=== PATIENT | female | born 1945 | race Caucasian/White ===

== ENCOUNTER 2018-01-04 05:05 | Inpatient (IN) | payer MEDICARE, MEDICAID ==
[2018-01-04] VITALS (16 sets, daily range): BP systolic 77–138; BP diastolic 48–72
[~2018-01-04] VITALS: Ht 165.1 cm; Wt 56.6 kg
[2018-01-04] MEDS ORDERED: normal saline 1000ml 1,000 ML IV ONE ×3 (05:20→13:20)
[2018-01-04] MEDS ORDERED: NORepinephrine 8mg/ 250ml NS 250 ML IV ONE (05:30)
[2018-01-04] MEDS ORDERED: normal saline 1000ml 1,000 ML IV STA (05:34)
[2018-01-04] MEDS ORDERED: LORazepam 2 mg/ml vial IV STA ×2 (05:40→05:46)
[2018-01-04 05:41] LABS: ABG BASE EXCESS -6.9 mmol/L (-2.0-3.0); ABG HCO3 22.1 mmol/L (22.0-26.0); ABG OXYGEN SATURATION 96.5 % (95-98); ABG PCO2 (T) 56.6 mmHg (32.0-45.0); ABG PH (T) 7.204 (7.350-7.450); FCOHb 7.3 % (0.5-1.5); FO2Hb 89.5 % (94-100); MINUTE VOLUME 8 L/min; PATIENT TEMPERATURE 36.1; PEEP 5 cm H2O; RESPIRATORY RATE 16 b/min; RESPIRATORY RATE (OBSERVED) 16 b/min; TOTAL HEMOGLOBIN 14.4 G/dl (12.0-16.0)
[2018-01-04] MEDS ORDERED: LORazepam 2 mg/ml vial ONE (05:42)
[2018-01-04 06:04] LABS: BASOPHILS # (AUTO) 0.1 X10'3 (0-0.2); BASOPHILS % (AUTO) 0.4 % (0-1); EOSINOPHILS # (AUTO) 0.5 X10'3 (0-0.9); EOSINOPHILS % (AUTO) 2.6 % (0-6); HEMATOCRIT 36.3 % (35.0-45.0); HEMOGLOBIN 11.7 g/dl (12.0-16.0); LYMPHOCYTES # (AUTO) 3.3 X10'3 (1.1-4.8); LYMPHOCYTES % (AUTO) 18.6 % (21-51); MEAN CORPUSCULAR HEMOGLOBIN 26.4 PG (27.0-31.0); MEAN CORPUSCULAR HGB CONC 32.1 % (33.0-36.5); MEAN CORPUSCULAR VOLUME 82.1 FL (78-98); MEAN PLATELET VOLUME 7.1 FL (7.4-10.4); MONOCYTES # (AUTO) 0.8 X10'3 (0-0.9); MONOCYTES % (AUTO) 4.7 % (2-12); NEUTROPHILS # (AUTO) 13.2 X10'3 (1.8-7.7); NEUTROPHILS % (AUTO) 73.7 % (42-75); PLATELET COUNT 286 X10'3 (140-440); RED BLOOD COUNT 4.42 X10'6 (4.20-5.60); RED CELL DISTRIBUTION WIDTH 17.7 % (11.5-14.5); WHITE BLOOD COUNT 17.9 X10'3 (4.5-11.0)
[2018-01-04] MEDS ORDERED: CISatracurium **Bolus** 2 mg/ml inj IV PRN (06:10)
[2018-01-04] MEDS: K, MAG and/or Phos replacement - Verify level? MC SCH ×2 (06:10→08:00)
[2018-01-04] MEDS ORDERED: morphine 2 MG/ML inj. syringe IV PRN (06:10)
[2018-01-04] MEDS ORDERED: morphine 4 MG/ML inj SYRINge IV PRN (06:10)
[2018-01-04] MEDS ORDERED: acetaminophen 325mg tablet PO PRN (06:10)
[2018-01-04 06:19] LABS: ALANINE AMINOTRANSFERASE 117 U/L (12-78); ALBUMIN 1.6 G/DL (3.4-5.0); ALBUMIN/GLOBULIN RATIO 0.6 (1.1-1.5); ALKALINE PHOSPHATASE 51 IU/L (46-116); ANION GAP 9 (8-16); ASPARTATE AMINO TRANSFERASE 158 U/L (10-37); BILIRUBIN,TOTAL 0.2 MG/DL (0.1-1.0); BLOOD UREA NITROGEN 6 MG/DL (7-18); BUN/CREATININE RATIO 7.4 (6.6-38.0); CHLORIDE 113 MMOL/L (99-107); CREATININE 0.81 MG/DL (0.40-0.90); GLUCOSE 166 MG/DL (70-104); MAGNESIUM 1.1 MG/DL (1.5-2.4); POTASSIUM 3.2 MMOL/L (3.5-5.1); SODIUM 146 MMOL/L (135-145); TOTAL CARBON DIOXIDE 24.5 MMOL/L (24-32); TOTAL PROTEIN 4.4 G/DL (6.4-8.2); eGFR 70 ML/MIN
[2018-01-04 06:21] LABS: CALCIUM 5.9 MG/DL (8.5-10.1); INR 1.3 INR; PARTIAL THROMBOPLASTIN TIME 50 SECONDS (22-32); PROTHROMBIN TIME 13.6 SECONDS (9.0-12.0)
[2018-01-04] MEDS ORDERED: magnesium 1gm/100ml D5W IVPB 100 ML IV SCH ×3 (06:25→07:00)
[2018-01-04] MEDS ORDERED: potassium 10mEq/100ml NS w/LIDOcaine (10mg/bag) IV ONE (06:25)
[2018-01-04] MEDS ORDERED: calcium gluconate inj. 1 GM in normal saline 100ml IV soln 90 ML IV ONE (06:30)
[2018-01-04] MEDS ORDERED: vancomycin/NS 1 GM ADD-VANTAGE 250 ML IV ONE (06:30)
[2018-01-04] MEDS ORDERED: NITR0.4T51 SL (06:32)
[2018-01-04] MEDS ORDERED: PROP425C PO (06:32)
[2018-01-04] MEDS ORDERED: HYDR25TA4 PO (06:32)
[2018-01-04] MEDS ORDERED: ASPI-3 PO (06:32)
[2018-01-04] MEDS ORDERED: AMLO10TA4 PO (06:32)
[2018-01-04] MEDS ORDERED: SIMV80TA2 PO (06:32)
[2018-01-04] MEDS ORDERED: POTA8TAB3 PO (06:32)
[2018-01-04] MEDS ORDERED: DABI150C PO (06:32)
[2018-01-04] MEDS ORDERED: BENA40TA73 PO (06:32)
[2018-01-04] MEDS ORDERED: PARO20TA6 PO (06:32)
[2018-01-04] MEDS ORDERED: calcium chloride 100 MG/1 ML inj IV ONE (06:40)
[2018-01-04 07:02] LABS: PHOSPHORUS 4.1 MG/DL (2.3-4.5)
[2018-01-04] MEDS ORDERED: calcium chloride inj. 1,000 MG in normal saline 100ml IV soln 90 ML IV ONE (07:20)
[2018-01-04] MEDS ORDERED: MIDAZolam 5mg/ml 2ml vial IV ONE (07:20)
[2018-01-04] MEDS ORDERED: NORepinephrine 8mg/ 250ml NS 250 ML IV SCH (07:35)
[2018-01-04 07:54] LABS: CLARITY,URINE CLEAR (Clear); COLOR,URINE YELLOW (Yellow); GLUCOSE, URINE 100 mg/dl (Neg); KETONES,URINE NEGATIVE (Neg); LEUKOCYTE ESTERASE ,URINE NEGATIVE (Neg); NITRITES, URINE NEGATIVE (Neg); OCCULT BLOOD,URINE MODERATE (Neg); PROTEIN,URINE >=300 mg/dl (Neg); UROBILINOGEN,URINE 0.2 E.U/dL (0.2-1.0)
[2018-01-04 07:55] LABS: UA COLLECTION TYPE FOLEY CATH
[2018-01-04] MEDS: FENTANYL-0.9 % NACL/PF 100 ML IV PRN (08:00)
[2018-01-04] MEDS: midazolam 100mg in NS 100ml 100 ML IV PRN ×2 (08:00→19:25)
[2018-01-04] MEDS ORDERED: etomidate 2mg/ml inj. ONE (08:00)
[2018-01-04] MEDS ORDERED: NORepinephrine 1 mg/ml inj IV ONE (08:00)
[2018-01-04] MEDS ORDERED: 0.9 % SODIUM CHLORIDE 10 ML VIAL ONE (08:00)
[2018-01-04 08:47] LABS: SQUAMOUS EPITHELIAL CELL,UR MODERATE /LPF (FEW)
[2018-01-04 08:48] LABS: BACTERIA,URINE FEW /HPF (Neg); MUCUS STRANDS FEW /LPF (Neg); RENAL CELLS, URINE FEW /HPF; WBC,URINE 0-4 /HPF (0-4)
[2018-01-04 08:49] LABS: RBC,URINE 20-50 /HPF (0-2)
[2018-01-04] MEDS: enoxaparin 40mg/0.4ml syringe SUBCUT SCH (09:20)
[2018-01-04] MEDS: pantoprazole 40 MG vial IV SCH (09:20)
[2018-01-04] MEDS: piperacillin/tazo 3.375gm/50ml 50 ML IV SCH ×3 (09:21→20:03)
[2018-01-04] MEDS ORDERED: dextrose 50%-water 50ml dispensing syringe IV PRN (09:25)
[2018-01-04] MEDS: insulin regular, human 100 UNIT in normal saline 100ml IV soln 99 ML IV SCH ×6 (09:25→22:08)
[2018-01-04] MEDS: normal saline 1000ml 1,000 ML IV SCH ×2 (09:41→20:04)
[2018-01-04 11:47] LABS: ALBUMIN 2.3 G/DL (3.4-5.0); ANION GAP 4 (8-16); BLOOD UREA NITROGEN 10 MG/DL (7-18); BUN/CREATININE RATIO 15.6 (6.6-38.0); CALCIUM 8.3 MG/DL (8.5-10.1); CHLORIDE 110 MMOL/L (99-107); CREATININE 0.64 MG/DL (0.40-0.90); GLUCOSE 136 MG/DL (70-104); MAGNESIUM 1.7 MG/DL (1.5-2.4); POTASSIUM 3.8 MMOL/L (3.5-5.1); SODIUM 143 MMOL/L (135-145); TOTAL CARBON DIOXIDE 29.3 MMOL/L (24-32); eGFR > 90 ML/MIN
[2018-01-04] MEDS: insulin Lispro (HumaLOG) vial - multi-dose SQ SCH ×3 (12:00→20:04)
[2018-01-04 15:21] LABS: OXYGEN SATURATION (MIXED VEN) 60.4 % (60-80); PO2 MIXED VENOUS (TEMP COR) 33.3 mmHg (35-46)
[2018-01-04 15:36] LABS: ABG BASE EXCESS -8.4 mmol/L (-2.0-3.0); ABG HCO3 21.6 mmol/L (22.0-26.0); ABG OXYGEN SATURATION 93.6 % (95-98); ABG PCO2 (T) 58.9 mmHg (32.0-45.0); ABG PO2 (T) 72.6 mmHg (83-108); ALLEN'S TEST Positive; FCOHb 1.2 % (0.5-1.5); FMetHb 0.1 % (0.3-1.12); FO2Hb 92.4 % (94-100); MINUTE VOLUME 7 L/min; PATIENT TEMPERATURE 34.9; PEEP 5 cm H2O; RESPIRATORY RATE 22 b/min; RESPIRATORY RATE (OBSERVED) 22 b/min; TIDAL VOLUME 397 mL; TOTAL HEMOGLOBIN 14.7 G/dl (12.0-16.0)
[2018-01-04 17:32] LABS: ALBUMIN 2.4 G/DL (3.4-5.0); ANION GAP 7 (8-16); BLOOD UREA NITROGEN 11 MG/DL (7-18); BUN/CREATININE RATIO 18.3 (6.6-38.0); CALCIUM 7.8 MG/DL (8.5-10.1); CHLORIDE 109 MMOL/L (99-107); GLUCOSE 137 MG/DL (70-104); MAGNESIUM 1.7 MG/DL (1.5-2.4); SODIUM 143 MMOL/L (135-145); TOTAL CARBON DIOXIDE 27.5 MMOL/L (24-32); eGFR > 90 ML/MIN
[2018-01-04] MEDS: VANCOMYCIN 750MG IV in NS 250 ML IV SCH (18:50)
[2018-01-04] MEDS: CISatracurium besylate inj. 200 MG in normal saline 250ml IV soln 180 ML IV PRN (19:24)
[2018-01-04 21:16] LABS: ABG BASE EXCESS -8.3 mmol/L (-2.0-3.0); ABG HCO3 19.5 mmol/L (22.0-26.0); ABG OXYGEN SATURATION 98.1 % (95-98); ABG PCO2 (T) 40.5 mmHg (32.0-45.0); ABG PH (T) 7.277 (7.350-7.450); ABG PO2 (T) 88.7 mmHg (83-108); ALLEN'S TEST Positive; FCOHb 0.8 % (0.5-1.5); FMetHb 0.1 % (0.3-1.12); FO2Hb 97.2 % (94-100); MINUTE VOLUME 9 L/min; PEEP 5 cm H2O; RESPIRATORY RATE 24 b/min; RESPIRATORY RATE (OBSERVED) 24 b/min; TOTAL HEMOGLOBIN 14.4 G/dl (12.0-16.0)
[2018-01-04 21:16] LABS: OXYGEN SATURATION (MIXED VEN) 76.9 % (60-80); PO2 MIXED VENOUS (TEMP COR) 32.7 mmHg (35-46)
[2018-01-04] MEDS: ipratropium/albuterol 3ml nebule NEB PRN ×2 (21:18→23:12)
[2018-01-04 23:38] LABS: ALBUMIN 2.1 G/DL (3.4-5.0); ANION GAP 12 (8-16); BLOOD UREA NITROGEN 11 MG/DL (7-18); BUN/CREATININE RATIO 19.3 (6.6-38.0); CALCIUM 7.8 MG/DL (8.5-10.1); CHLORIDE 109 MMOL/L (99-107); CREATININE 0.57 MG/DL (0.40-0.90); GLUCOSE 127 MG/DL (70-104); MAGNESIUM 1.5 MG/DL (1.5-2.4); SODIUM 144 MMOL/L (135-145); TOTAL CARBON DIOXIDE 23.3 MMOL/L (24-32); eGFR > 90 ML/MIN
[2018-01-04 23:53] LABS: POTASSIUM 2.7 MMOL/L (3.5-5.1); TROPONIN I 1.01 NG/ML (0.0-0.05)
[2018-01-05] VITALS (19 sets, daily range): BP systolic 93–143; BP diastolic 57–91
[2018-01-05] MEDS ORDERED: potassium Cl 40MEQ/250ML bag 250 ML IV PRN
[2018-01-05] MEDS: insulin regular, human 100 UNIT in normal saline 100ml IV soln 99 ML IV SCH ×4 (00:12→06:15)
[2018-01-05] MEDS: FENTANYL-0.9 % NACL/PF 100 ML IV PRN ×2 (00:45→21:57)
[2018-01-05] MEDS: potassium Cl 40MEQ/250ML bag 250 ML IV SCH ×2 (00:47→02:54)
[2018-01-05] MEDS: piperacillin/tazo 3.375gm/50ml 50 ML IV SCH ×4 (02:05→19:28)
[2018-01-05] MEDS: ipratropium/albuterol 3ml nebule NEB PRN ×3 (03:03→15:26)
[2018-01-05 03:25] LABS: ABG BASE EXCESS -8.2 mmol/L (-2.0-3.0); ABG HCO3 15.9 mmol/L (22.0-26.0); ABG OXYGEN SATURATION 92.4 % (95-98); ABG PCO2 (T) 24.1 mmHg (32.0-45.0); ABG PH (T) 7.416 (7.350-7.450); ABG PO2 (T) 45.7 mmHg (83-108); ALLEN'S TEST Positive; FMetHb 0.3 % (0.3-1.12); FO2Hb 91.2 % (94-100); MINUTE VOLUME 12 L/min; PATIENT TEMPERATURE 32.5; PEEP 5 cm H2O; RESPIRATORY RATE 24 b/min; RESPIRATORY RATE (OBSERVED) 24 b/min; TOTAL HEMOGLOBIN 14.3 G/dl (12.0-16.0)
[2018-01-05 03:31] LABS: OXYGEN SATURATION (MIXED VEN) 58.3 % (60-80)
[2018-01-05 05:15] LABS: BASOPHILS % (AUTO) 0 % (0-1); EOSINOPHILS # (AUTO) 0.2 X10'3 (0-0.9); EOSINOPHILS % (AUTO) 1.3 % (0-6); HEMOGLOBIN 14.5 g/dl (12.0-16.0); LYMPHOCYTES # (AUTO) 1.8 X10'3 (1.1-4.8); LYMPHOCYTES % (AUTO) 12.6 % (21-51); MEAN CORPUSCULAR HEMOGLOBIN 25.9 PG (27.0-31.0); MEAN CORPUSCULAR HGB CONC 31.5 % (33.0-36.5); MEAN CORPUSCULAR VOLUME 82.3 FL (78-98); MEAN PLATELET VOLUME 7.8 FL (7.4-10.4); NEUTROPHILS # (AUTO) 11.5 X10'3 (1.8-7.7); NEUTROPHILS % (AUTO) 79.1 % (42-75); PLATELET COUNT 306 X10'3 (140-440); RED BLOOD COUNT 5.59 X10'6 (4.20-5.60); RED CELL DISTRIBUTION WIDTH 17.3 % (11.5-14.5); WHITE BLOOD COUNT 14.5 X10'3 (4.5-11.0)
[2018-01-05] MEDS: NORepinephrine 8mg/ 250ml NS 250 ML IV SCH (05:15)
[2018-01-05 05:20] LABS: ALANINE AMINOTRANSFERASE 124 U/L (12-78); ALBUMIN 2.1 G/DL (3.4-5.0); ALBUMIN/GLOBULIN RATIO 0.6 (1.1-1.5); ALKALINE PHOSPHATASE 59 IU/L (46-116); ANION GAP 13 (8-16); ASPARTATE AMINO TRANSFERASE 115 U/L (10-37); BILIRUBIN,TOTAL 0.5 MG/DL (0.1-1.0); BLOOD UREA NITROGEN 13 MG/DL (7-18); BUN/CREATININE RATIO 25.5 (6.6-38.0); CALCIUM 7.5 MG/DL (8.5-10.1); CHLORIDE 111 MMOL/L (99-107); CREATININE 0.51 MG/DL (0.40-0.90); GLUCOSE 137 MG/DL (70-104); MAGNESIUM 1.5 MG/DL (1.5-2.4); PHOSPHORUS 2.2 MG/DL (2.3-4.5); POTASSIUM 5.1 MMOL/L (3.5-5.1); SODIUM 143 MMOL/L (135-145); TOTAL CARBON DIOXIDE 19.3 MMOL/L (24-32); TOTAL PROTEIN 5.8 G/DL (6.4-8.2); eGFR > 90 ML/MIN
[2018-01-05 05:46] LABS: INR 1.1 INR; PARTIAL THROMBOPLASTIN TIME 39 SECONDS (22-32); PROTHROMBIN TIME 11.4 SECONDS (9.0-12.0)
[2018-01-05] MEDS: insulin Lispro (HumaLOG) vial - multi-dose SQ SCH ×4 (07:00→19:28)
[2018-01-05] MEDS: K, MAG and/or Phos replacement - Verify level? MC SCH (08:00)
[2018-01-05] MEDS ORDERED: DOBUTamine-DoBUTrex 500mg/D5W 250 ML IV SCH (08:05)
[2018-01-05] MEDS: normal saline 1000ml 1,000 ML IV SCH ×2 (08:50→16:14)
[2018-01-05 09:16] LABS: OXYGEN SATURATION (MIXED VEN) 74.4 % (60-80); PO2 MIXED VENOUS (TEMP COR) 29.4 mmHg (35-46)
[2018-01-05] MEDS: enoxaparin 40mg/0.4ml syringe SUBCUT SCH (09:20)
[2018-01-05 09:21] LABS: ABG BASE EXCESS -8.3 mmol/L (-2.0-3.0); ABG HCO3 14.3 mmol/L (22.0-26.0); ABG OXYGEN SATURATION 99.5 % (95-98); ABG PCO2 (T) 19.9 mmHg (32.0-45.0); ABG PH (T) 7.457 (7.350-7.450); ABG PO2 (T) 374.9 mmHg (83-108); FCOHb 0.6 % (0.5-1.5); FO2Hb 98.9 % (94-100); MINUTE VOLUME 15 L/min; PATIENT TEMPERATURE 33.1; PEEP 8 cm H2O; RESPIRATORY RATE 24 b/min; TOTAL HEMOGLOBIN 14.8 G/dl (12.0-16.0)
[2018-01-05] MEDS: mineral oil/petrolatum ophthal oint EACHEYE SCH ×3 (09:21→19:28)
[2018-01-05] MEDS: pantoprazole 40 MG vial IV SCH (09:21)
[2018-01-05] MEDS: VANCOMYCIN 750MG IV in NS 250 ML IV SCH ×2 (09:21→19:25)
[2018-01-05 11:30] LABS: ALBUMIN 1.8 G/DL (3.4-5.0); ANION GAP 15 (8-16); BLOOD UREA NITROGEN 13 MG/DL (7-18); BUN/CREATININE RATIO 22.4 (6.6-38.0); CALCIUM 7.4 MG/DL (8.5-10.1); CHLORIDE 114 MMOL/L (99-107); CREATININE 0.58 MG/DL (0.40-0.90); GLUCOSE 151 MG/DL (70-104); MAGNESIUM 1.4 MG/DL (1.5-2.4); POTASSIUM 3.8 MMOL/L (3.5-5.1); SODIUM 144 MMOL/L (135-145); TROPONIN I 0.53 NG/ML (0.0-0.05); eGFR > 90 ML/MIN
[2018-01-05 11:36] LABS: TOTAL CARBON DIOXIDE 14.7 MMOL/L (24-32)
[2018-01-05 15:26] LABS: ABG BASE EXCESS -8.7 mmol/L (-2.0-3.0); ABG HCO3 14.7 mmol/L (22.0-26.0); ABG OXYGEN SATURATION 98.3 % (95-98); ABG PCO2 (T) 22.8 mmHg (32.0-45.0); ABG PH (T) 7.416 (7.350-7.450); ABG PO2 (T) 110.6 mmHg (83-108); FCOHb 0.4 % (0.5-1.5); FMetHb 0.1 % (0.3-1.12); FO2Hb 97.8 % (94-100); MINUTE VOLUME 14 L/min; PATIENT TEMPERATURE 34.2; PEEP 5 cm H2O; RESPIRATORY RATE 24 b/min; TOTAL HEMOGLOBIN 13.6 G/dl (12.0-16.0)
[2018-01-05 15:26] LABS: OXYGEN SATURATION (MIXED VEN) 64.4 % (60-80); PO2 MIXED VENOUS (TEMP COR) 27.8 mmHg (35-46)
[2018-01-05 17:41] LABS: ALBUMIN 1.7 G/DL (3.4-5.0); ANION GAP 14 (8-16); BLOOD UREA NITROGEN 14 MG/DL (7-18); BUN/CREATININE RATIO 26.9 (6.6-38.0); CALCIUM 7.3 MG/DL (8.5-10.1); CHLORIDE 115 MMOL/L (99-107); CREATININE 0.52 MG/DL (0.40-0.90); GLUCOSE 132 MG/DL (70-104); MAGNESIUM 1.4 MG/DL (1.5-2.4); POTASSIUM 3.5 MMOL/L (3.5-5.1); SODIUM 145 MMOL/L (135-145); TOTAL CARBON DIOXIDE 16.3 MMOL/L (24-32); eGFR > 90 ML/MIN
[2018-01-05] MEDS: CISatracurium besylate inj. 200 MG in normal saline 250ml IV soln 180 ML IV PRN (19:27)
[2018-01-05 21:06] LABS: ABG BASE EXCESS -10.6 mmol/L (-2.0-3.0); ABG OXYGEN SATURATION 97.1 % (95-98); ABG PCO2 (T) 23.4 mmHg (32.0-45.0); ABG PH (T) 7.362 (7.350-7.450); FCOHb 0.8 % (0.5-1.5); FO2Hb 96.3 % (94-100); MINUTE VOLUME 14 L/min; PATIENT TEMPERATURE 36.6; PEEP 5 cm H2O; RESPIRATORY RATE 24 b/min; RESPIRATORY RATE (OBSERVED) 24 b/min; TOTAL HEMOGLOBIN 13.2 G/dl (12.0-16.0)
[2018-01-05 21:31] LABS: OXYGEN SATURATION (MIXED VEN) 78.8 % (60-80)
[2018-01-05 23:58] LABS: ALBUMIN 1.7 G/DL (3.4-5.0); ANION GAP 14 (8-16); BLOOD UREA NITROGEN 16 MG/DL (7-18); BUN/CREATININE RATIO 21.9 (6.6-38.0); CHLORIDE 115 MMOL/L (99-107); CREATININE 0.73 MG/DL (0.40-0.90); GLUCOSE 125 MG/DL (70-104); MAGNESIUM 1.3 MG/DL (1.5-2.4); SODIUM 145 MMOL/L (135-145); eGFR 79 ML/MIN
[2018-01-06] VITALS (24 sets, daily range): BP systolic 69–125; BP diastolic 52–67
[2018-01-06] MEDS: piperacillin/tazo 3.375gm/50ml 50 ML IV SCH ×4 (02:25→19:42)
[2018-01-06] MEDS: mineral oil/petrolatum ophthal oint EACHEYE SCH ×4 (02:25→19:41)
[2018-01-06] MEDS: midazolam 100mg in NS 100ml 100 ML IV PRN (02:28)
[2018-01-06 03:55] LABS: ABG BASE EXCESS -8.9 mmol/L (-2.0-3.0); ABG HCO3 14.8 mmol/L (22.0-26.0); ABG OXYGEN SATURATION 96.8 % (95-98); ABG PH (T) 7.359 (7.350-7.450); ABG PO2 (T) 97.9 mmHg (83-108); FCOHb 0.4 % (0.5-1.5); FMetHb 0.3 % (0.3-1.12); FO2Hb 96.1 % (94-100); MINUTE VOLUME 14 L/min; PATIENT TEMPERATURE 37.6; PEEP 5 cm H2O; RESPIRATORY RATE 24 b/min; RESPIRATORY RATE (OBSERVED) 24 b/min; TOTAL HEMOGLOBIN 12.8 G/dl (12.0-16.0)
[2018-01-06 05:05] LABS: BASOPHILS % (AUTO) 0.1 % (0-1); EOSINOPHILS % (AUTO) 0 % (0-6); HEMATOCRIT 36.9 % (35.0-45.0); HEMOGLOBIN 11.7 g/dl (12.0-16.0); MEAN CORPUSCULAR HEMOGLOBIN 25.6 PG (27.0-31.0); MEAN CORPUSCULAR HGB CONC 31.6 % (33.0-36.5); MEAN PLATELET VOLUME 8.4 FL (7.4-10.4); MONOCYTES # (AUTO) 0.9 X10'3 (0-0.9); MONOCYTES % (AUTO) 7.1 % (2-12); NEUTROPHILS # (AUTO) 10.5 X10'3 (1.8-7.7); NEUTROPHILS % (AUTO) 84.8 % (42-75); PLATELET COUNT 248 X10'3 (140-440); RED BLOOD COUNT 4.56 X10'6 (4.20-5.60); WHITE BLOOD COUNT 12.4 X10'3 (4.5-11.0)
[2018-01-06 05:21] LABS: INR 1.1 INR; PARTIAL THROMBOPLASTIN TIME 38 SECONDS (22-32); PROTHROMBIN TIME 10.9 SECONDS (9.0-12.0)
[2018-01-06 05:25] LABS: ALANINE AMINOTRANSFERASE 96 U/L (12-78); ALBUMIN 1.7 G/DL (3.4-5.0); ALBUMIN/GLOBULIN RATIO 0.5 (1.1-1.5); ALKALINE PHOSPHATASE 47 IU/L (46-116); ANION GAP 15 (8-16); ASPARTATE AMINO TRANSFERASE 67 U/L (10-37); BILIRUBIN,TOTAL 0.4 MG/DL (0.1-1.0); BLOOD UREA NITROGEN 17 MG/DL (7-18); BUN/CREATININE RATIO 21.3 (6.6-38.0); CALCIUM 7.4 MG/DL (8.5-10.1); CHLORIDE 115 MMOL/L (99-107); GLUCOSE 133 MG/DL (70-104); MAGNESIUM 1.5 MG/DL (1.5-2.4); PHOSPHORUS 3.4 MG/DL (2.3-4.5); POTASSIUM 4.1 MMOL/L (3.5-5.1); SODIUM 147 MMOL/L (135-145); TOTAL CARBON DIOXIDE 16.6 MMOL/L (24-32); TOTAL PROTEIN 5.2 G/DL (6.4-8.2); eGFR 71 ML/MIN
[2018-01-06] MEDS ORDERED: VANCOMYCIN LEVEL IV NR (06:30)
[2018-01-06] MEDS ORDERED: amiodarone 150mg/dext, iso-os 100 ML IV ONE (06:40)
[2018-01-06] MEDS: insulin Lispro (HumaLOG) vial - multi-dose SQ SCH ×2 (07:00→09:43)
[2018-01-06] MEDS: amiodarone/D5 360MG/200ML BAG 200 ML IV SCH ×3 (07:20→18:48)
[2018-01-06] MEDS: pantoprazole 40 MG vial IV SCH (07:46)
[2018-01-06] MEDS: enoxaparin 40mg/0.4ml syringe SUBCUT SCH (07:46)
[2018-01-06] MEDS: K, MAG and/or Phos replacement - Verify level? MC SCH (08:00)
[2018-01-06] MEDS ORDERED: vancomycin/NS 1 GM ADD-VANTAGE 250 ML IV SCH (09:00)
[2018-01-06] MEDS: insulin regular, human 100 UNIT in normal saline 100ml IV soln 99 ML IV SCH ×2 (09:25)
[2018-01-06] MEDS: sodium bicarbonate (8.4%) inj. 150 MEQ in dextrose 5%-water 1,000 ML IV SCH ×3 (11:16→18:59)
[2018-01-06] MEDS ORDERED: glucagon, human recombinant 1mg kit SUBCUT PRN (14:50)
[2018-01-06] MEDS ORDERED: dextrose 50%-water 50ml dispensing syringe IV PRN ×2 (14:50)
[2018-01-06] MEDS ORDERED: dextrose ORAL solution 15 GM/59 ML bottle PO PRN ×2 (14:50)
[2018-01-06] MEDS ORDERED: MESSAGE TO PHARMACY PO ONE (14:50)
[2018-01-06] MEDS: vancomycin/NS 1 GM ADD-VANTAGE 250 ML IV SCH (21:17)
[2018-01-06] MEDS: insulin glargine (Lantus) pen - multi-dose SQ SCH (21:20)
[2018-01-06] MEDS: insulin regular, human vial - multi-dose SQ SCH (21:21)
[2018-01-07] VITALS (24 sets, daily range): BP systolic 63–116; BP diastolic 41–72
[2018-01-07] MEDS: amiodarone/D5 360MG/200ML BAG 200 ML IV SCH ×2 (01:30→04:49)
[2018-01-07] MEDS: piperacillin/tazo 3.375gm/50ml 50 ML IV SCH ×4 (02:27→20:20)
[2018-01-07] MEDS: mineral oil/petrolatum ophthal oint EACHEYE SCH ×4 (02:27→20:19)
[2018-01-07] MEDS: sodium bicarbonate (8.4%) inj. 150 MEQ in dextrose 5%-water 1,000 ML IV SCH (02:27)
[2018-01-07 02:44] LABS: BASOPHILS # (AUTO) 0.1 X10'3 (0-0.2); BASOPHILS % (AUTO) 0.7 % (0-1); EOSINOPHILS % (AUTO) 0 % (0-6); HEMATOCRIT 33.5 % (35.0-45.0); HEMOGLOBIN 10.7 g/dl (12.0-16.0); LYMPHOCYTES # (AUTO) 1.1 X10'3 (1.1-4.8); LYMPHOCYTES % (AUTO) 7.8 % (21-51); MEAN CORPUSCULAR HEMOGLOBIN 25.6 PG (27.0-31.0); MEAN CORPUSCULAR HGB CONC 31.8 % (33.0-36.5); MEAN CORPUSCULAR VOLUME 80.4 FL (78-98); MEAN PLATELET VOLUME 7.5 FL (7.4-10.4); MONOCYTES # (AUTO) 0.8 X10'3 (0-0.9); NEUTROPHILS % (AUTO) 85.5 % (42-75); PLATELET COUNT 207 X10'3 (140-440); RED BLOOD COUNT 4.17 X10'6 (4.20-5.60)
[2018-01-07] MEDS: insulin regular, human vial - multi-dose SQ SCH ×2 (02:50→08:31)
[2018-01-07 02:58] LABS: ALANINE AMINOTRANSFERASE 74 U/L (12-78); ALBUMIN 1.5 G/DL (3.4-5.0); ALBUMIN/GLOBULIN RATIO 0.4 (1.1-1.5); ALKALINE PHOSPHATASE 56 IU/L (46-116); ANION GAP 8 (8-16); ASPARTATE AMINO TRANSFERASE 38 U/L (10-37); BILIRUBIN,TOTAL 0.3 MG/DL (0.1-1.0); BLOOD UREA NITROGEN 18 MG/DL (7-18); BUN/CREATININE RATIO 27.7 (6.6-38.0); CALCIUM 6.8 MG/DL (8.5-10.1); CHLORIDE 109 MMOL/L (99-107); CREATININE 0.65 MG/DL (0.40-0.90); GLUCOSE 144 MG/DL (70-104); MAGNESIUM 1.5 MG/DL (1.5-2.4); POTASSIUM 3.1 MMOL/L (3.5-5.1); SODIUM 143 MMOL/L (135-145); TOTAL CARBON DIOXIDE 26.4 MMOL/L (24-32); eGFR 90 ML/MIN
[2018-01-07 03:13] LABS: PARTIAL THROMBOPLASTIN TIME 39 SECONDS (22-32); PROTHROMBIN TIME 10.7 SECONDS (9.0-12.0)
[2018-01-07] MEDS: potassium Cl 40MEQ/250ML bag 250 ML IV PRN (03:59)
[2018-01-07 04:36] LABS: ABG BASE EXCESS 2.9 mmol/L (-2.0-3.0); ABG OXYGEN SATURATION 93.1 % (95-98); ABG PH (T) 7.448 (7.350-7.450); ABG PO2 (T) 66.6 mmHg (83-108); FCOHb 0.4 % (0.5-1.5); FMetHb 0.3 % (0.3-1.12); FO2Hb 92.4 % (94-100); MINUTE VOLUME 11 L/min; PATIENT TEMPERATURE 37.3; PEEP 5 cm H2O; RESPIRATORY RATE 24 b/min; RESPIRATORY RATE (OBSERVED) 24 b/min; TOTAL HEMOGLOBIN 11.3 G/dl (12.0-16.0)
[2018-01-07] MEDS: NORepinephrine 8mg/ 250ml NS 250 ML IV SCH (04:40)
[2018-01-07] MEDS ORDERED: sodium chloride 0.45% 1,000 ML IV SCH (05:00)
[2018-01-07] MEDS: FENTANYL-0.9 % NACL/PF 100 ML IV PRN (06:06)
[2018-01-07] MEDS: K, MAG and/or Phos replacement - Verify level? MC SCH (06:46)
[2018-01-07] MEDS: pantoprazole 40 MG vial IV SCH (08:06)
[2018-01-07] MEDS: enoxaparin 40mg/0.4ml syringe SUBCUT SCH (08:07)
[2018-01-07] MEDS: vancomycin/NS 1 GM ADD-VANTAGE 250 ML IV SCH ×2 (08:57→20:18)
[2018-01-07] MEDS ORDERED: nitroGLYCERIN 0.4mg SUBLingual tab SL PRN (10:50)
[2018-01-07] MEDS ORDERED: dabigatran 150mg capsule PO SCH (20:00)
[2018-01-07] MEDS ORDERED: RYTHMOL PO SCH (20:00)
[2018-01-07] MEDS: midazolam 100mg in NS 100ml 100 ML IV PRN (20:19)
[2018-01-07] MEDS ORDERED: VANCOMYCIN LEVEL IV ONE (20:30)
[2018-01-07] MEDS: insulin glargine (Lantus) pen - multi-dose SQ SCH (21:00)
[2018-01-07] MEDS: enoxaparin 30mg/0.3ml syringe SUBCUT SCH (21:33)
[2018-01-08] VITALS (24 sets, daily range): BP systolic 82–129; BP diastolic 48–73
[2018-01-08] MEDS: FENTANYL-0.9 % NACL/PF 100 ML IV PRN ×2 (00:34→19:18)
[2018-01-08] MEDS: NORepinephrine 8mg/ 250ml NS 250 ML IV SCH (00:35)
[2018-01-08] MEDS: propafenone 150mg tablet PO SCH ×4 (00:45→23:48)
[2018-01-08 03:06] LABS: BASOPHILS % (AUTO) 0 % (0-1); EOSINOPHILS % (AUTO) 0 % (0-6); HEMATOCRIT 31.5 % (35.0-45.0); HEMOGLOBIN 10.1 g/dl (12.0-16.0); LYMPHOCYTES # (AUTO) 1.3 X10'3 (1.1-4.8); LYMPHOCYTES % (AUTO) 8.6 % (21-51); MEAN CORPUSCULAR HEMOGLOBIN 25.5 PG (27.0-31.0); MEAN CORPUSCULAR HGB CONC 31.9 % (33.0-36.5); MEAN CORPUSCULAR VOLUME 79.7 FL (78-98); MEAN PLATELET VOLUME 8.6 FL (7.4-10.4); MONOCYTES % (AUTO) 6.8 % (2-12); NEUTROPHILS # (AUTO) 12.6 X10'3 (1.8-7.7); NEUTROPHILS % (AUTO) 84.6 % (42-75); PLATELET COUNT 175 X10'3 (140-440); RED BLOOD COUNT 3.95 X10'6 (4.20-5.60); RED CELL DISTRIBUTION WIDTH 18.5 % (11.5-14.5); WHITE BLOOD COUNT 14.9 X10'3 (4.5-11.0)
[2018-01-08 03:31] LABS: ALANINE AMINOTRANSFERASE 50 U/L (12-78); ALBUMIN 1.4 G/DL (3.4-5.0); ALBUMIN/GLOBULIN RATIO 0.4 (1.1-1.5); ALKALINE PHOSPHATASE 63 IU/L (46-116); ANION GAP 10 (8-16); ASPARTATE AMINO TRANSFERASE 32 U/L (10-37); BILIRUBIN,TOTAL 0.5 MG/DL (0.1-1.0); BLOOD UREA NITROGEN 15 MG/DL (7-18); BUN/CREATININE RATIO 25.9 (6.6-38.0); CALCIUM 7.3 MG/DL (8.5-10.1); CHLORIDE 110 MMOL/L (99-107); CREATININE 0.58 MG/DL (0.40-0.90); GLUCOSE 88 MG/DL (70-104); MAGNESIUM 1.8 MG/DL (1.5-2.4); PHOSPHORUS 1.4 MG/DL (2.3-4.5); SODIUM 146 MMOL/L (135-145); TOTAL CARBON DIOXIDE 25.8 MMOL/L (24-32); eGFR > 90 ML/MIN
[2018-01-08 03:34] LABS: POTASSIUM 2.8 MMOL/L (3.5-5.1)
[2018-01-08] MEDS: mineral oil/petrolatum ophthal oint EACHEYE SCH ×4 (03:36→20:11)
[2018-01-08] MEDS: piperacillin/tazo 3.375gm/50ml 50 ML IV SCH ×4 (03:36→20:11)
[2018-01-08 04:16] LABS: ABG BASE EXCESS 0.2 mmol/L (-2.0-3.0); ABG OXYGEN SATURATION 92.8 % (95-98); ABG PCO2 (T) 27.3 mmHg (32.0-45.0); ABG PH (T) 7.525 (7.350-7.450); ABG PO2 (T) 64.3 mmHg (83-108); ALLEN'S TEST Positive; FCOHb 0.3 % (0.5-1.5); FMetHb 0.3 % (0.3-1.12); FO2Hb 92.2 % (94-100); MINUTE VOLUME 10 L/min; PATIENT TEMPERATURE 37.5; PEEP 5 cm H2O; RESPIRATORY RATE 24 b/min; RESPIRATORY RATE (OBSERVED) 24 b/min
[2018-01-08] MEDS: potassium Cl 40MEQ/250ML bag 250 ML IV PRN ×2 (05:23→07:36)
[2018-01-08] MEDS: enoxaparin 30mg/0.3ml syringe SUBCUT SCH ×2 (07:36→20:11)
[2018-01-08] MEDS: enoxaparin 40mg/0.4ml syringe SQ SCH ×2 (07:37→20:10)
[2018-01-08] MEDS: pantoprazole 40 MG vial IV SCH (07:37)
[2018-01-08] MEDS: vancomycin/NS 1 GM ADD-VANTAGE 250 ML IV SCH ×2 (07:37→20:55)
[2018-01-08] MEDS: PARoxetine 20mg tablet PO SCH (07:39)
[2018-01-08] MEDS: atorvastatin 20mg tablet PO SCH (07:39)
[2018-01-08] MEDS: K, MAG and/or Phos replacement - Verify level? MC SCH (07:40)
[2018-01-08] MEDS: aspirin 325mg tablet PO SCH (07:43)
[2018-01-08 07:54] LABS: ANISOCYTOSIS 2+; PLATELET ESTIMATE NORMAL
[2018-01-08 07:55] LABS: HYPOCHROMASIA 1+; POIKILOCYTOSIS 1+; POLYCHROMASIA FEW
[2018-01-08] MEDS ORDERED: VANCOMYCIN LEVEL IV NR (20:30)
[2018-01-08] MEDS: insulin glargine (Lantus) pen - multi-dose SQ SCH (21:00)
[2018-01-08] MEDS: midazolam 100mg in NS 100ml 100 ML IV PRN (23:49)
[2018-01-09] VITALS (24 sets, daily range): BP systolic 91–140; BP diastolic 50–82
[2018-01-09] MEDS: mineral oil/petrolatum ophthal oint EACHEYE SCH ×4 (02:24→20:22)
[2018-01-09] MEDS: piperacillin/tazo 3.375gm/50ml 50 ML IV SCH ×2 (02:25→07:48)
[2018-01-09 03:10] LABS: ALANINE AMINOTRANSFERASE 37 U/L (12-78); ALBUMIN 1.3 G/DL (3.4-5.0); ALBUMIN/GLOBULIN RATIO 0.4 (1.1-1.5); ALKALINE PHOSPHATASE 57 IU/L (46-116); ANION GAP 9 (8-16); ASPARTATE AMINO TRANSFERASE 24 U/L (10-37); BILIRUBIN,TOTAL 0.4 MG/DL (0.1-1.0); BLOOD UREA NITROGEN 16 MG/DL (7-18); BUN/CREATININE RATIO 24.2 (6.6-38.0); CALCIUM 7.1 MG/DL (8.5-10.1); CHLORIDE 112 MMOL/L (99-107); CREATININE 0.66 MG/DL (0.40-0.90); GLUCOSE 108 MG/DL (70-104); MAGNESIUM 1.9 MG/DL (1.5-2.4); PHOSPHORUS 2.2 MG/DL (2.3-4.5); POTASSIUM 3.3 MMOL/L (3.5-5.1); PREALBUMIN 6.2 MG/DL (19-36); SODIUM 148 MMOL/L (135-145); TOTAL CARBON DIOXIDE 26.8 MMOL/L (24-32); TOTAL PROTEIN 4.8 G/DL (6.4-8.2); eGFR 89 ML/MIN
[2018-01-09 03:13] LABS: BASOPHILS % (AUTO) 0.1 % (0-1); EOSINOPHILS # (AUTO) 0.2 X10'3 (0-0.9); EOSINOPHILS % (AUTO) 2.3 % (0-6); HEMATOCRIT 28.2 % (35.0-45.0); HEMOGLOBIN 9.1 g/dl (12.0-16.0); LYMPHOCYTES # (AUTO) 1.2 X10'3 (1.1-4.8); LYMPHOCYTES % (AUTO) 13.4 % (21-51); MEAN CORPUSCULAR HEMOGLOBIN 25.9 PG (27.0-31.0); MEAN CORPUSCULAR HGB CONC 32.4 % (33.0-36.5); MEAN CORPUSCULAR VOLUME 79.8 FL (78-98); MEAN PLATELET VOLUME 8.7 FL (7.4-10.4); MONOCYTES # (AUTO) 0.8 X10'3 (0-0.9); MONOCYTES % (AUTO) 8.5 % (2-12); NEUTROPHILS # (AUTO) 6.8 X10'3 (1.8-7.7); NEUTROPHILS % (AUTO) 75.7 % (42-75); PLATELET COUNT 152 X10'3 (140-440); RED BLOOD COUNT 3.53 X10'6 (4.20-5.60); RED CELL DISTRIBUTION WIDTH 18.3 % (11.5-14.5)
[2018-01-09 03:46] LABS: ABG BASE EXCESS 1.2 mmol/L (-2.0-3.0); ABG HCO3 24.8 mmol/L (22.0-26.0); ABG OXYGEN SATURATION 88.8 % (95-98); ABG PH (T) 7.467 (7.350-7.450); ABG PO2 (T) 52.6 mmHg (83-108); ALLEN'S TEST Positive; FCOHb 0.3 % (0.5-1.5); FMetHb 0.3 % (0.3-1.12); FO2Hb 88.3 % (94-100); MINUTE VOLUME 10 L/min; PATIENT TEMPERATURE 36.8; PEEP 5 cm H2O; RESPIRATORY RATE 18 b/min; RESPIRATORY RATE (OBSERVED) 18 b/min; TOTAL HEMOGLOBIN 10.1 G/dl (12.0-16.0)
[2018-01-09] MEDS: NORepinephrine 8mg/ 250ml NS 250 ML IV SCH (05:35)
[2018-01-09 06:19] LABS: ANISOCYTOSIS 1+; LARGE PLATELETS FEW; PLATELET ESTIMATE NORMAL
[2018-01-09] MEDS: PARoxetine 20mg tablet PO SCH (07:47)
[2018-01-09] MEDS: propafenone 150mg tablet PO SCH ×3 (07:47→23:52)
[2018-01-09] MEDS: atorvastatin 20mg tablet PO SCH (07:47)
[2018-01-09] MEDS: pantoprazole 40 MG vial IV SCH (07:48)
[2018-01-09] MEDS: enoxaparin 30mg/0.3ml syringe SUBCUT SCH ×2 (07:49→20:22)
[2018-01-09] MEDS: enoxaparin 40mg/0.4ml syringe SQ SCH ×2 (07:49→20:23)
[2018-01-09] MEDS: K, MAG and/or Phos replacement - Verify level? MC SCH (08:39)
[2018-01-09] MEDS: aspirin 325mg tablet PO SCH (08:49)
[2018-01-09] MEDS: vancomycin/NS 1 GM ADD-VANTAGE 250 ML IV SCH (08:49)
[2018-01-09] MEDS: potassium Cl 40MEQ/250ML bag 250 ML IV SCH (09:26)
[2018-01-09] MEDS: levoFLOXACIN 500mg tablet PO SCH ×2 (11:00→17:54)
[2018-01-09] MEDS: lactobacillus rhamnosus 10,000 MMU CELLS/CAPSULE PO SCH (20:21)
[2018-01-09] MEDS: midazolam 100mg in NS 100ml 100 ML IV PRN (20:22)
[2018-01-09] MEDS: insulin glargine (Lantus) pen - multi-dose SQ SCH (21:00)
[2018-01-10] VITALS (24 sets, daily range): BP systolic 92–153; BP diastolic 47–68
[2018-01-10] MEDS: mineral oil/petrolatum ophthal oint EACHEYE SCH ×4 (02:35→20:00)
[2018-01-10 03:19] LABS: BASOPHILS % (AUTO) 0.4 % (0-1); EOSINOPHILS # (AUTO) 0.2 X10'3 (0-0.9); EOSINOPHILS % (AUTO) 3.1 % (0-6); HEMATOCRIT 26.3 % (35.0-45.0); HEMOGLOBIN 8.4 g/dl (12.0-16.0); LYMPHOCYTES # (AUTO) 1.1 X10'3 (1.1-4.8); LYMPHOCYTES % (AUTO) 15.9 % (21-51); MEAN CORPUSCULAR HEMOGLOBIN 25.6 PG (27.0-31.0); MEAN CORPUSCULAR HGB CONC 31.9 % (33.0-36.5); MEAN CORPUSCULAR VOLUME 80.3 FL (78-98); MEAN PLATELET VOLUME 9.3 FL (7.4-10.4); MONOCYTES # (AUTO) 0.7 X10'3 (0-0.9); MONOCYTES % (AUTO) 9.7 % (2-12); NEUTROPHILS # (AUTO) 4.9 X10'3 (1.8-7.7); NEUTROPHILS % (AUTO) 70.9 % (42-75); PLATELET COUNT 150 X10'3 (140-440); RED BLOOD COUNT 3.28 X10'6 (4.20-5.60); RED CELL DISTRIBUTION WIDTH 18.4 % (11.5-14.5)
[2018-01-10 03:56] LABS: ABG BASE EXCESS -0.9 mmol/L (-2.0-3.0); ABG HCO3 22.9 mmol/L (22.0-26.0); ABG OXYGEN SATURATION 93.6 % (95-98); ABG PCO2 (T) 34.3 mmHg (32.0-45.0); ABG PH (T) 7.441 (7.350-7.450); ABG PO2 (T) 66.2 mmHg (83-108); ALLEN'S TEST Positive; FCOHb 0.2 % (0.5-1.5); FMetHb 0.3 % (0.3-1.12); FO2Hb 93.1 % (94-100); MINUTE VOLUME 9 L/min; PATIENT TEMPERATURE 36.9; PEEP 5 cm H2O; RESPIRATORY RATE 16 b/min; RESPIRATORY RATE (OBSERVED) 16 b/min; TOTAL HEMOGLOBIN 9.8 G/dl (12.0-16.0)
[2018-01-10 03:58] LABS: ALANINE AMINOTRANSFERASE 30 U/L (12-78); ALBUMIN 1.3 G/DL (3.4-5.0); ALBUMIN/GLOBULIN RATIO 0.4 (1.1-1.5); ALKALINE PHOSPHATASE 54 IU/L (46-116); ANION GAP 7 (8-16); ASPARTATE AMINO TRANSFERASE 22 U/L (10-37); BILIRUBIN,TOTAL 0.4 MG/DL (0.1-1.0); BLOOD UREA NITROGEN 15 MG/DL (7-18); BUN/CREATININE RATIO 23.4 (6.6-38.0); CALCIUM 7.1 MG/DL (8.5-10.1); CHLORIDE 114 MMOL/L (99-107); CREATININE 0.64 MG/DL (0.40-0.90); GLUCOSE 81 MG/DL (70-104); MAGNESIUM 1.9 MG/DL (1.5-2.4); PHOSPHORUS 2.7 MG/DL (2.3-4.5); POTASSIUM 3.7 MMOL/L (3.5-5.1); SODIUM 147 MMOL/L (135-145); TOTAL PROTEIN 4.8 G/DL (6.4-8.2); eGFR > 90 ML/MIN
[2018-01-10 04:43] LABS: ANISOCYTOSIS 2+; PLATELET ESTIMATE NORMAL; TARGET CELLS 1+
[2018-01-10] MEDS: enoxaparin 40mg/0.4ml syringe SQ SCH ×2 (07:30→21:09)
[2018-01-10] MEDS: pantoprazole 40 MG vial IV SCH (07:30)
[2018-01-10] MEDS: atorvastatin 20mg tablet PO SCH (07:30)
[2018-01-10] MEDS: PARoxetine 20mg tablet PO SCH (07:30)
[2018-01-10] MEDS: propafenone 150mg tablet PO SCH ×2 (07:30→16:00)
[2018-01-10] MEDS: lactobacillus rhamnosus 10,000 MMU CELLS/CAPSULE PO SCH ×2 (07:30→21:08)
[2018-01-10] MEDS: enoxaparin 30mg/0.3ml syringe SUBCUT SCH ×2 (07:30→21:09)
[2018-01-10] MEDS: K, MAG and/or Phos replacement - Verify level? MC SCH (08:00)
[2018-01-10] MEDS: aspirin 325mg tablet PO SCH (10:43)
[2018-01-10] MEDS: levoFLOXACIN 500mg tablet PO SCH (10:43)
[2018-01-10] MEDS: FENTANYL-0.9 % NACL/PF 100 ML IV PRN (18:32)
[2018-01-10] MEDS: midazolam 100mg in NS 100ml 100 ML IV PRN (18:37)
[2018-01-10] MEDS: insulin glargine (Lantus) pen - multi-dose SQ SCH (21:00)
[2018-01-11] VITALS (24 sets, daily range): BP systolic 92–159; BP diastolic 44–81
[2018-01-11] MEDS: mineral oil/petrolatum ophthal oint EACHEYE SCH ×4 (02:38→20:00)
[2018-01-11 02:56] LABS: BASOPHILS % (AUTO) 0.4 % (0-1); EOSINOPHILS # (AUTO) 0.3 X10'3 (0-0.9); EOSINOPHILS % (AUTO) 3.7 % (0-6); HEMATOCRIT 25.7 % (35.0-45.0); HEMOGLOBIN 8.2 g/dl (12.0-16.0); LYMPHOCYTES % (AUTO) 14.9 % (21-51); MEAN CORPUSCULAR HEMOGLOBIN 25.8 PG (27.0-31.0); MEAN CORPUSCULAR VOLUME 80.6 FL (78-98); MEAN PLATELET VOLUME 8.8 FL (7.4-10.4); MONOCYTES # (AUTO) 0.7 X10'3 (0-0.9); MONOCYTES % (AUTO) 10.1 % (2-12); NEUTROPHILS % (AUTO) 70.9 % (42-75); PLATELET COUNT 155 X10'3 (140-440); RED BLOOD COUNT 3.19 X10'6 (4.20-5.60); RED CELL DISTRIBUTION WIDTH 18.1 % (11.5-14.5)
[2018-01-11 03:14] LABS: ALANINE AMINOTRANSFERASE 23 U/L (12-78); ALBUMIN 1.3 G/DL (3.4-5.0); ALBUMIN/GLOBULIN RATIO 0.4 (1.1-1.5); ALKALINE PHOSPHATASE 44 IU/L (46-116); ANION GAP 6 (8-16); ASPARTATE AMINO TRANSFERASE 15 U/L (10-37); BILIRUBIN,TOTAL 0.3 MG/DL (0.1-1.0); BLOOD UREA NITROGEN 14 MG/DL (7-18); BUN/CREATININE RATIO 23.3 (6.6-38.0); CALCIUM 7.6 MG/DL (8.5-10.1); CHLORIDE 114 MMOL/L (99-107); GLUCOSE 107 MG/DL (70-104); MAGNESIUM 1.9 MG/DL (1.5-2.4); PHOSPHORUS 3.7 MG/DL (2.3-4.5); POTASSIUM 3.7 MMOL/L (3.5-5.1); SODIUM 148 MMOL/L (135-145); TOTAL CARBON DIOXIDE 27.6 MMOL/L (24-32); TOTAL PROTEIN 4.7 G/DL (6.4-8.2); eGFR > 90 ML/MIN
[2018-01-11 04:36] LABS: ABG BASE EXCESS -0.9 mmol/L (-2.0-3.0); ABG HCO3 23.2 mmol/L (22.0-26.0); ABG OXYGEN SATURATION 92.4 % (95-98); ABG PCO2 (T) 35.6 mmHg (32.0-45.0); ABG PH (T) 7.431 (7.350-7.450); ABG PO2 (T) 62.9 mmHg (83-108); ALLEN'S TEST Positive; FCOHb 0.5 % (0.5-1.5); FMetHb 0.3 % (0.3-1.12); FO2Hb 91.7 % (94-100); MINUTE VOLUME 8 L/min; PEEP 5 cm H2O; RESPIRATORY RATE 16 b/min; RESPIRATORY RATE (OBSERVED) 16 b/min; TOTAL HEMOGLOBIN 9.3 G/dl (12.0-16.0)
[2018-01-11] MEDS: NORepinephrine 8mg/ 250ml NS 250 ML IV SCH (04:40)
[2018-01-11 05:13] LABS: ANISOCYTOSIS 2+; PLATELET ESTIMATE NORMAL
[2018-01-11] MEDS: FENTANYL-0.9 % NACL/PF 100 ML IV PRN (06:58)
[2018-01-11] MEDS: enoxaparin 40mg/0.4ml syringe SQ SCH ×2 (08:00→20:10)
[2018-01-11] MEDS: enoxaparin 30mg/0.3ml syringe SUBCUT SCH ×2 (08:00→20:10)
[2018-01-11] MEDS: lactobacillus rhamnosus 10,000 MMU CELLS/CAPSULE PO SCH ×2 (08:30→20:09)
[2018-01-11] MEDS: atorvastatin 20mg tablet PO SCH (08:30)
[2018-01-11] MEDS: PARoxetine 20mg tablet PO SCH (08:30)
[2018-01-11] MEDS: propafenone 150mg tablet PO SCH ×3 (08:31→17:03)
[2018-01-11] MEDS: pantoprazole 40 MG vial IV SCH (08:31)
[2018-01-11] MEDS: K, MAG and/or Phos replacement - Verify level? MC SCH (08:51)
[2018-01-11] MEDS ORDERED: LIDOcaine 1%/PF 5ML 10 MG/ML VIAL ONE (09:37)
[2018-01-11] MEDS: aspirin 325mg tablet PO SCH (10:44)
[2018-01-11] MEDS: furosemide 40mg/4ml inj IV SCH ×3 (10:44→20:10)
[2018-01-11 10:55] LABS: BFSOURCE RIGHT PLEURAL FLD; PLEURAL FLUID PH 7.417 (7.63-7.65)
[2018-01-11 11:18] LABS: GLUCOSE,BODY FLUID 107 MG/DL; LDH,BODY FLUID 141 U/L; TOTAL PROTEIN,BODY FLUID 2.1 G/DL
[2018-01-11] MEDS: levoFLOXACIN 500mg tablet PO SCH (11:36)
[2018-01-11 11:59] LABS: BFAPPEAR CLOUDY; BFCOLOR YELLOW; BFVOLUME 26.5 ML
[2018-01-11 12:00] LABS: BF RBC COUNT 4625 /CU MM; BF WBC COUNT 96 /CU MM (0-1000); LYMPHOCYTES,BODY FLUID 60 %; MONOCYTES,BODY FLUID 1 %; NEUTROPHILS,BODY FLUID 39 %
[2018-01-11] MEDS: insulin glargine (Lantus) pen - multi-dose SQ SCH (21:00)
[2018-01-12] VITALS (24 sets, daily range): BP systolic 81–159; BP diastolic 44–87
[2018-01-12] MEDS: mineral oil/petrolatum ophthal oint EACHEYE SCH ×4 (02:00→20:09)
[2018-01-12] MEDS: potassium Cl 40MEQ/250ML bag 250 ML IV SCH ×3 (02:27→15:15)
[2018-01-12 03:06] LABS: ABG BASE EXCESS 3.4 mmol/L (-2.0-3.0); ABG OXYGEN SATURATION 94.6 % (95-98); ABG PCO2 (T) 43.4 mmHg (32.0-45.0); ABG PH (T) 7.429 (7.350-7.450); ABG PO2 (T) 74.2 mmHg (83-108); ALLEN'S TEST Positive; FCOHb 0.3 % (0.5-1.5); FMetHb 0.3 % (0.3-1.12); MINUTE VOLUME 9 L/min; PATIENT TEMPERATURE 37.4; PEEP 8 cm H2O; RESPIRATORY RATE (OBSERVED) 19 b/min; TOTAL HEMOGLOBIN 10.1 G/dl (12.0-16.0)
[2018-01-12 03:11] LABS: BASOPHILS % (AUTO) 0.1 % (0-1); EOSINOPHILS # (AUTO) 0.3 X10'3 (0-0.9); EOSINOPHILS % (AUTO) 2.3 % (0-6); HEMATOCRIT 28.6 % (35.0-45.0); HEMOGLOBIN 9.2 g/dl (12.0-16.0); LYMPHOCYTES # (AUTO) 1.2 X10'3 (1.1-4.8); LYMPHOCYTES % (AUTO) 11.2 % (21-51); MEAN CORPUSCULAR HEMOGLOBIN 25.9 PG (27.0-31.0); MEAN CORPUSCULAR HGB CONC 32.1 % (33.0-36.5); MEAN CORPUSCULAR VOLUME 80.7 FL (78-98); MEAN PLATELET VOLUME 9.2 FL (7.4-10.4); MONOCYTES # (AUTO) 0.9 X10'3 (0-0.9); MONOCYTES % (AUTO) 8.3 % (2-12); NEUTROPHILS # (AUTO) 8.5 X10'3 (1.8-7.7); NEUTROPHILS % (AUTO) 78.1 % (42-75); PLATELET COUNT 179 X10'3 (140-440); RED BLOOD COUNT 3.54 X10'6 (4.20-5.60); RED CELL DISTRIBUTION WIDTH 17.6 % (11.5-14.5); WHITE BLOOD COUNT 10.8 X10'3 (4.5-11.0)
[2018-01-12 03:47] LABS: ALANINE AMINOTRANSFERASE 20 U/L (12-78); ALBUMIN 1.5 G/DL (3.4-5.0); ALBUMIN/GLOBULIN RATIO 0.4 (1.1-1.5); ALKALINE PHOSPHATASE 50 IU/L (46-116); ANION GAP 9 (8-16); ASPARTATE AMINO TRANSFERASE 15 U/L (10-37); BILIRUBIN,TOTAL 0.4 MG/DL (0.1-1.0); BLOOD UREA NITROGEN 11 MG/DL (7-18); CHLORIDE 109 MMOL/L (99-107); CREATININE 0.61 MG/DL (0.40-0.90); GLUCOSE 108 MG/DL (70-104); MAGNESIUM 1.6 MG/DL (1.5-2.4); PHOSPHORUS 4.2 MG/DL (2.3-4.5); POTASSIUM 3.2 MMOL/L (3.5-5.1); PREALBUMIN 7.8 MG/DL (19-36); SODIUM 149 MMOL/L (135-145); TOTAL CARBON DIOXIDE 31.5 MMOL/L (24-32); TOTAL PROTEIN 5.4 G/DL (6.4-8.2); eGFR > 90 ML/MIN
[2018-01-12] MEDS: furosemide 40mg/4ml inj IV SCH ×4 (04:12→20:09)
[2018-01-12] MEDS: FENTANYL-0.9 % NACL/PF 100 ML IV PRN (05:41)
[2018-01-12] MEDS: midazolam 100mg in NS 100ml 100 ML IV PRN (05:43)
[2018-01-12] MEDS: pantoprazole 40 MG vial IV SCH (07:51)
[2018-01-12] MEDS: lactobacillus rhamnosus 10,000 MMU CELLS/CAPSULE PO SCH ×2 (07:52→20:09)
[2018-01-12] MEDS: PARoxetine 20mg tablet PO SCH (07:52)
[2018-01-12] MEDS: atorvastatin 20mg tablet PO SCH (07:52)
[2018-01-12] MEDS: propafenone 150mg tablet PO SCH ×4 (07:53→16:02)
[2018-01-12] MEDS: enoxaparin 40mg/0.4ml syringe SQ SCH ×2 (07:54→20:10)
[2018-01-12] MEDS: aspirin 325mg tablet PO SCH (07:54)
[2018-01-12] MEDS: enoxaparin 30mg/0.3ml syringe SUBCUT SCH ×2 (07:54→20:10)
[2018-01-12] MEDS: K, MAG and/or Phos replacement - Verify level? MC SCH (08:00)
[2018-01-12] MEDS: levoFLOXACIN 500mg tablet PO SCH (11:24)
[2018-01-12] MEDS ORDERED: FENTANYL-0.9 % NACL/PF 100 ML IV PRN (16:20)
[2018-01-12] MEDS ORDERED: dexmedetomidin/NS 400mcg/100ml 100 ML IV SCH (16:20)
[2018-01-12] MEDS: gabapentin 300mg capsule PO SCH (20:09)
[2018-01-12] MEDS: insulin glargine (Lantus) pen - multi-dose SQ SCH (20:10)
[2018-01-12] MEDS: acetaminophen 325mg tablet PO PRN (22:02)
[2018-01-13] VITALS (42 sets, daily range): BP systolic 74–195; BP diastolic 43–88
[2018-01-13] MEDS: potassium Cl 40MEQ/250ML bag 250 ML IV PRN ×2 (00:59→04:55)
[2018-01-13] MEDS: furosemide 40mg/4ml inj IV SCH ×4 (02:28→20:24)
[2018-01-13] MEDS: mineral oil/petrolatum ophthal oint EACHEYE SCH ×4 (02:28→20:24)
[2018-01-13] MEDS ORDERED: NORepinephrine 8mg/ 250ml NS 250 ML IV SCH (02:55)
[2018-01-13] MEDS ORDERED: NORepinephrine 8mg/ 250ml NS 250 ML IV ONE (02:57)
[2018-01-13 03:30] LABS: BASOPHILS % (AUTO) 0.1 % (0-1); EOSINOPHILS # (AUTO) 0.2 X10'3 (0-0.9); EOSINOPHILS % (AUTO) 2.3 % (0-6); HEMATOCRIT 27.4 % (35.0-45.0); HEMOGLOBIN 8.9 g/dl (12.0-16.0); LYMPHOCYTES # (AUTO) 1.1 X10'3 (1.1-4.8); MEAN CORPUSCULAR HEMOGLOBIN 25.8 PG (27.0-31.0); MEAN CORPUSCULAR HGB CONC 32.4 % (33.0-36.5); MEAN CORPUSCULAR VOLUME 79.6 FL (78-98); MEAN PLATELET VOLUME 8.9 FL (7.4-10.4); MONOCYTES # (AUTO) 0.6 X10'3 (0-0.9); MONOCYTES % (AUTO) 6.4 % (2-12); NEUTROPHILS # (AUTO) 7.7 X10'3 (1.8-7.7); NEUTROPHILS % (AUTO) 80.2 % (42-75); PLATELET COUNT 185 X10'3 (140-440); RED BLOOD COUNT 3.44 X10'6 (4.20-5.60); RED CELL DISTRIBUTION WIDTH 18.1 % (11.5-14.5); WHITE BLOOD COUNT 9.6 X10'3 (4.5-11.0)
[2018-01-13 03:52] LABS: PLATELET ESTIMATE NORMAL
[2018-01-13 03:53] LABS: ANISOCYTOSIS 2+; HYPOCHROMASIA 1+
[2018-01-13 03:54] LABS: POLYCHROMASIA FEW; TARGET CELLS 1+
[2018-01-13 04:15] LABS: ALANINE AMINOTRANSFERASE 20 U/L (12-78); ALBUMIN 1.5 G/DL (3.4-5.0); ALBUMIN/GLOBULIN RATIO 0.3 (1.1-1.5); ALKALINE PHOSPHATASE 54 IU/L (46-116); ANION GAP 8 (8-16); ASPARTATE AMINO TRANSFERASE 13 U/L (10-37); BILIRUBIN,TOTAL 0.5 MG/DL (0.1-1.0); BLOOD UREA NITROGEN 12 MG/DL (7-18); BUN/CREATININE RATIO 14.5 (6.6-38.0); CALCIUM 7.5 MG/DL (8.5-10.1); CHLORIDE 107 MMOL/L (99-107); CREATININE 0.83 MG/DL (0.40-0.90); GLUCOSE 142 MG/DL (70-104); MAGNESIUM 1.6 MG/DL (1.5-2.4); PHOSPHORUS 2.5 MG/DL (2.3-4.5); POTASSIUM 3.3 MMOL/L (3.5-5.1); SODIUM 147 MMOL/L (135-145); eGFR 68 ML/MIN
[2018-01-13 05:46] LABS: ABG BASE EXCESS 7.6 mmol/L (-2.0-3.0); ABG HCO3 28.7 mmol/L (22.0-26.0); ABG OXYGEN SATURATION 96.9 % (95-98); ABG PCO2 (T) 28.7 mmHg (32.0-45.0); ABG PH (T) 7.619 (7.350-7.450); ABG PO2 (T) 87.5 mmHg (83-108); ALLEN'S TEST Positive; FCOHb 0.3 % (0.5-1.5); FMetHb 0.3 % (0.3-1.12); FO2Hb 96.3 % (94-100); MINUTE VOLUME 12 L/min; PATIENT TEMPERATURE 37.4; PEEP 5 cm H2O; RESPIRATORY RATE (OBSERVED) 16 b/min
[2018-01-13] MEDS: K, MAG and/or Phos replacement - Verify level? MC SCH (08:00)
[2018-01-13] MEDS: PARoxetine 20mg tablet PO SCH (08:00)
[2018-01-13] MEDS: pantoprazole 40 MG vial IV SCH (08:12)
[2018-01-13] MEDS: enoxaparin 40mg/0.4ml syringe SQ SCH ×2 (08:32→20:26)
[2018-01-13] MEDS: enoxaparin 30mg/0.3ml syringe SUBCUT SCH ×2 (08:33→20:25)
[2018-01-13] MEDS: atorvastatin 20mg tablet PO SCH (08:46)
[2018-01-13] MEDS: lactobacillus rhamnosus 10,000 MMU CELLS/CAPSULE PO SCH ×2 (08:59→20:24)
[2018-01-13] MEDS: aspirin 325mg tablet PO SCH (08:59)
[2018-01-13] MEDS ORDERED: normal saline 1000ml 1,000 ML IVB ONE (09:14)
[2018-01-13] MEDS: insulin regular, human vial - multi-dose SQ SCH ×2 (09:27→20:31)
[2018-01-13] MEDS: gabapentin 300mg capsule PO SCH ×2 (09:29→20:24)
[2018-01-13] MEDS ORDERED: normal saline 1000ml 1,000 ML IV ONE (10:35)
[2018-01-13] MEDS: levoFLOXACIN 500mg tablet PO SCH (14:00)
[2018-01-13] MEDS ORDERED: normal saline 1000ml 1,000 ML IV SCH (16:30)
[2018-01-13] MEDS: propafenone 150mg tablet PO SCH ×2 (17:31)
[2018-01-13] MEDS: insulin glargine (Lantus) pen - multi-dose SQ SCH (20:32)
[2018-01-14] VITALS (24 sets, daily range): BP systolic 81–126; BP diastolic 40–62
[2018-01-14] MEDS: ondansetron/PF 4mg/2ml inj IV PRN ×2 (00:35→07:35)
[2018-01-14] MEDS: furosemide 40mg/4ml inj IV SCH ×4 (02:00→19:42)
[2018-01-14] MEDS: mineral oil/petrolatum ophthal oint EACHEYE SCH ×2 (02:41→07:37)
[2018-01-14] MEDS: insulin regular, human vial - multi-dose SQ SCH (02:45)
[2018-01-14 02:47] LABS: BASOPHILS % (AUTO) 0.1 % (0-1); EOSINOPHILS # (AUTO) 0.5 X10'3 (0-0.9); HEMATOCRIT 26.1 % (35.0-45.0); HEMOGLOBIN 8.4 g/dl (12.0-16.0); LYMPHOCYTES # (AUTO) 1.3 X10'3 (1.1-4.8); LYMPHOCYTES % (AUTO) 10.9 % (21-51); MEAN CORPUSCULAR HEMOGLOBIN 25.9 PG (27.0-31.0); MEAN CORPUSCULAR HGB CONC 32.2 % (33.0-36.5); MEAN CORPUSCULAR VOLUME 80.4 FL (78-98); MEAN PLATELET VOLUME 9.5 FL (7.4-10.4); MONOCYTES # (AUTO) 0.7 X10'3 (0-0.9); MONOCYTES % (AUTO) 5.5 % (2-12); NEUTROPHILS # (AUTO) 9.7 X10'3 (1.8-7.7); NEUTROPHILS % (AUTO) 79.5 % (42-75); PLATELET COUNT 196 X10'3 (140-440); RED BLOOD COUNT 3.25 X10'6 (4.20-5.60); RED CELL DISTRIBUTION WIDTH 17.6 % (11.5-14.5); WHITE BLOOD COUNT 12.2 X10'3 (4.5-11.0)
[2018-01-14 03:07] LABS: ALANINE AMINOTRANSFERASE 17 U/L (12-78); ALBUMIN 1.4 G/DL (3.4-5.0); ALBUMIN/GLOBULIN RATIO 0.4 (1.1-1.5); ALKALINE PHOSPHATASE 54 IU/L (46-116); ANION GAP 8 (8-16); ASPARTATE AMINO TRANSFERASE 18 U/L (10-37); BILIRUBIN,TOTAL 0.3 MG/DL (0.1-1.0); BLOOD UREA NITROGEN 17 MG/DL (7-18); BUN/CREATININE RATIO 23.3 (6.6-38.0); CALCIUM 7.4 MG/DL (8.5-10.1); CHLORIDE 106 MMOL/L (99-107); CREATININE 0.73 MG/DL (0.40-0.90); GLUCOSE 97 MG/DL (70-104); MAGNESIUM 1.7 MG/DL (1.5-2.4); PHOSPHORUS 3.7 MG/DL (2.3-4.5); POTASSIUM 3.1 MMOL/L (3.5-5.1); SODIUM 145 MMOL/L (135-145); TOTAL CARBON DIOXIDE 31.3 MMOL/L (24-32); TOTAL PROTEIN 5.2 G/DL (6.4-8.2); eGFR 79 ML/MIN
[2018-01-14 03:40] LABS: ABG BASE EXCESS 5.4 mmol/L (-2.0-3.0); ABG HCO3 27.6 mmol/L (22.0-26.0); ABG OXYGEN SATURATION 94.8 % (95-98); ABG PCO2 (T) 32.2 mmHg (32.0-45.0); ABG PH (T) 7.553 (7.350-7.450); ABG PO2 (T) 71.6 mmHg (83-108); ALLEN'S TEST Positive; FCOHb 0.2 % (0.5-1.5); FMetHb 0.3 % (0.3-1.12); FO2Hb 94.3 % (94-100); MINUTE VOLUME 11 L/min; PATIENT TEMPERATURE 37.7; PEEP 5 cm H2O; RESPIRATORY RATE 12 b/min; RESPIRATORY RATE (OBSERVED) 15 b/min
[2018-01-14] MEDS: potassium Cl 40MEQ/250ML bag 250 ML IV SCH (04:45)
[2018-01-14] MEDS: K, MAG and/or Phos replacement - Verify level? MC SCH (06:59)
[2018-01-14] MEDS: pantoprazole 40 MG vial IV SCH (07:35)
[2018-01-14] MEDS: lactobacillus rhamnosus 10,000 MMU CELLS/CAPSULE PO SCH ×2 (07:35→19:46)
[2018-01-14] MEDS: propafenone 150mg tablet PO SCH ×3 (07:36→16:19)
[2018-01-14] MEDS: atorvastatin 20mg tablet PO SCH (07:36)
[2018-01-14] MEDS: acetaminophen 325mg tablet PO PRN (07:36)
[2018-01-14] MEDS: aspirin 325mg tablet PO SCH (07:36)
[2018-01-14] MEDS: gabapentin 300mg capsule PO SCH ×2 (07:36→19:46)
[2018-01-14] MEDS: enoxaparin 30mg/0.3ml syringe SUBCUT SCH ×2 (07:37→19:46)
[2018-01-14] MEDS: enoxaparin 40mg/0.4ml syringe SQ SCH ×2 (07:37→19:45)
[2018-01-14] MEDS: PARoxetine 20mg tablet PO SCH (08:00)
[2018-01-14] MEDS ORDERED: ipratropium/albuterol 3ml nebule NEB PRN (09:50)
[2018-01-14] MEDS ORDERED: racepinephrine 11.25mg/0.5ml nebule NEB PRN (09:50)
[2018-01-14] MEDS: levoFLOXACIN 500mg tablet PO SCH (11:00)
[2018-01-14] MEDS: ipratropium/albuterol 3ml nebule NEB SCH ×2 (15:46→20:12)
[2018-01-14] MEDS: insulin glargine (Lantus) pen - multi-dose SQ SCH (21:00)
[2018-01-14] MEDS: temazepam 15mg capsule PO PRN (21:19)
[2018-01-15] VITALS (23 sets, daily range): BP systolic 85–140; BP diastolic 43–93
[2018-01-15] MEDS: propafenone 150mg tablet PO SCH ×4 (01:08→15:37)
[2018-01-15] MEDS: ipratropium/albuterol 3ml nebule NEB SCH ×4 (02:13→20:27)
[2018-01-15] MEDS: furosemide 40mg/4ml inj IV SCH ×4 (02:21→19:15)
[2018-01-15 02:46] LABS: ALANINE AMINOTRANSFERASE 15 U/L (12-78); ALBUMIN 1.6 G/DL (3.4-5.0); ALBUMIN/GLOBULIN RATIO 0.4 (1.1-1.5); ALKALINE PHOSPHATASE 57 IU/L (46-116); ANION GAP 7 (8-16); ASPARTATE AMINO TRANSFERASE 17 U/L (10-37); BILIRUBIN,TOTAL 0.4 MG/DL (0.1-1.0); BLOOD UREA NITROGEN 14 MG/DL (7-18); BUN/CREATININE RATIO 24.1 (6.6-38.0); CHLORIDE 106 MMOL/L (99-107); CREATININE 0.58 MG/DL (0.40-0.90); GLUCOSE 82 MG/DL (70-104); MAGNESIUM 2.1 MG/DL (1.5-2.4); PHOSPHORUS 4.1 MG/DL (2.3-4.5); POTASSIUM 4.1 MMOL/L (3.5-5.1); SODIUM 143 MMOL/L (135-145); TOTAL CARBON DIOXIDE 30.2 MMOL/L (24-32); TOTAL PROTEIN 5.9 G/DL (6.4-8.2); eGFR > 90 ML/MIN
[2018-01-15 02:55] LABS: BASOPHILS % (AUTO) 0.1 % (0-1); EOSINOPHILS # (AUTO) 0.5 X10'3 (0-0.9); EOSINOPHILS % (AUTO) 4.4 % (0-6); HEMATOCRIT 28.4 % (35.0-45.0); HEMOGLOBIN 9.1 g/dl (12.0-16.0); LYMPHOCYTES # (AUTO) 1.4 X10'3 (1.1-4.8); LYMPHOCYTES % (AUTO) 11.3 % (21-51); MEAN CORPUSCULAR HEMOGLOBIN 26.1 PG (27.0-31.0); MEAN CORPUSCULAR HGB CONC 32.1 % (33.0-36.5); MEAN CORPUSCULAR VOLUME 81.3 FL (78-98); MEAN PLATELET VOLUME 9.9 FL (7.4-10.4); MONOCYTES # (AUTO) 0.5 X10'3 (0-0.9); MONOCYTES % (AUTO) 4.1 % (2-12); NEUTROPHILS # (AUTO) 9.8 X10'3 (1.8-7.7); NEUTROPHILS % (AUTO) 80.1 % (42-75); PLATELET COUNT 219 X10'3 (140-440); RED BLOOD COUNT 3.49 X10'6 (4.20-5.60); RED CELL DISTRIBUTION WIDTH 17.8 % (11.5-14.5); WHITE BLOOD COUNT 12.3 X10'3 (4.5-11.0)
[2018-01-15 03:25] LABS: ABG BASE EXCESS 3.1 mmol/L (-2.0-3.0); ABG HCO3 28.7 mmol/L (22.0-26.0); ABG PCO2 (T) 49.2 mmHg (32.0-45.0); ABG PH (T) 7.385 (7.350-7.450); ABG PO2 (T) 51.9 mmHg (83-108); ALLEN'S TEST Positive; FLOW 7 L/min; FMetHb 0.3 % (0.3-1.12); FO2Hb 84.9 % (94-100); PATIENT TEMPERATURE 37.2; RESPIRATORY RATE (OBSERVED) 22 b/min; TOTAL HEMOGLOBIN 10.3 G/dl (12.0-16.0)
[2018-01-15] MEDS: lactobacillus rhamnosus 10,000 MMU CELLS/CAPSULE PO SCH ×2 (07:38→19:18)
[2018-01-15] MEDS: aspirin 325mg tablet PO SCH (07:38)
[2018-01-15] MEDS: gabapentin 300mg capsule PO SCH ×2 (07:38→19:18)
[2018-01-15] MEDS: pantoprazole 40 MG vial IV SCH (07:38)
[2018-01-15] MEDS: PARoxetine 20mg tablet PO SCH (07:38)
[2018-01-15] MEDS: atorvastatin 20mg tablet PO SCH (07:38)
[2018-01-15] MEDS: enoxaparin 30mg/0.3ml syringe SUBCUT SCH ×2 (07:39→19:17)
[2018-01-15] MEDS: enoxaparin 40mg/0.4ml syringe SQ SCH ×2 (07:39→19:16)
[2018-01-15] MEDS: K, MAG and/or Phos replacement - Verify level? MC SCH (07:49)
[2018-01-15] MEDS: temazepam 15mg capsule PO PRN (19:18)
[2018-01-15] MEDS: insulin glargine (Lantus) pen - multi-dose SQ SCH (19:53)
[2018-01-15] MEDS ORDERED: normal saline 500ml IV soln 1,000 ML IV ONE (19:55)
[2018-01-15 19:59] LABS: ALANINE AMINOTRANSFERASE 19 U/L (12-78); ALBUMIN 1.8 G/DL (3.4-5.0); ALBUMIN/GLOBULIN RATIO 0.4 (1.1-1.5); ALKALINE PHOSPHATASE 68 IU/L (46-116); ANION GAP 5 (8-16); ASPARTATE AMINO TRANSFERASE 21 U/L (10-37); BILIRUBIN,TOTAL 0.4 MG/DL (0.1-1.0); BLOOD UREA NITROGEN 12 MG/DL (7-18); BUN/CREATININE RATIO 16.2 (6.6-38.0); CALCIUM 8.2 MG/DL (8.5-10.1); CHLORIDE 101 MMOL/L (99-107); CREATININE 0.74 MG/DL (0.40-0.90); GLUCOSE 107 MG/DL (70-104); SODIUM 141 MMOL/L (135-145); TOTAL CARBON DIOXIDE 35.5 MMOL/L (24-32); TOTAL PROTEIN 6.3 G/DL (6.4-8.2); eGFR 78 ML/MIN
[2018-01-15] MEDS: potassium Cl 20 mEq SR tablet PO PRN (20:07)
[2018-01-15 20:10] LABS: MAGNESIUM 1.8 MG/DL (1.5-2.4); TROPONIN I < 0.04 NG/ML (0.0-0.05)
[2018-01-15] MEDS ORDERED: potassium Cl 40MEQ/250ML bag 250 ML IV PRN (20:15)
[2018-01-15] MEDS ORDERED: amiodarone 150mg/dext, iso-os 100 ML IV ONE (20:15)
[2018-01-15] MEDS: amiodarone/D5 360MG/200ML BAG 200 ML IV SCH (20:18)
[2018-01-16] VITALS (24 sets, daily range): BP systolic 87–147; BP diastolic 47–72
[2018-01-16] MEDS: potassium Cl 20 mEq SR tablet PO PRN ×2 (00:35→05:37)
[2018-01-16] MEDS: furosemide 40mg/4ml inj IV SCH ×4 (02:00→19:58)
[2018-01-16] MEDS: amiodarone/D5 360MG/200ML BAG 200 ML IV SCH ×4 (02:14→20:29)
[2018-01-16] MEDS: ipratropium/albuterol 3ml nebule NEB SCH ×4 (02:30→20:14)
[2018-01-16 03:09] LABS: ALANINE AMINOTRANSFERASE 17 U/L (12-78); ALBUMIN 1.7 G/DL (3.4-5.0); ALBUMIN/GLOBULIN RATIO 0.4 (1.1-1.5); ALKALINE PHOSPHATASE 64 IU/L (46-116); ANION GAP 5 (8-16); ASPARTATE AMINO TRANSFERASE 17 U/L (10-37); BILIRUBIN,TOTAL 0.3 MG/DL (0.1-1.0); BLOOD UREA NITROGEN 11 MG/DL (7-18); BUN/CREATININE RATIO 15.1 (6.6-38.0); CALCIUM 8.1 MG/DL (8.5-10.1); CHLORIDE 103 MMOL/L (99-107); CREATININE 0.73 MG/DL (0.40-0.90); GLUCOSE 130 MG/DL (70-104); MAGNESIUM 1.9 MG/DL (1.5-2.4); PHOSPHORUS 4.2 MG/DL (2.3-4.5); POTASSIUM 3.4 MMOL/L (3.5-5.1); PREALBUMIN 8.9 MG/DL (19-36); SODIUM 142 MMOL/L (135-145); TOTAL CARBON DIOXIDE 34.2 MMOL/L (24-32); TOTAL PROTEIN 6.1 G/DL (6.4-8.2); eGFR 79 ML/MIN
[2018-01-16 03:20] LABS: BASOPHILS % (AUTO) 0.1 % (0-1); EOSINOPHILS # (AUTO) 0.5 X10'3 (0-0.9); EOSINOPHILS % (AUTO) 3.1 % (0-6); HEMATOCRIT 30.9 % (35.0-45.0); HEMOGLOBIN 9.8 g/dl (12.0-16.0); LYMPHOCYTES # (AUTO) 1.1 X10'3 (1.1-4.8); LYMPHOCYTES % (AUTO) 7.4 % (21-51); MEAN CORPUSCULAR HEMOGLOBIN 25.9 PG (27.0-31.0); MEAN CORPUSCULAR HGB CONC 31.8 % (33.0-36.5); MEAN CORPUSCULAR VOLUME 81.6 FL (78-98); MEAN PLATELET VOLUME 9.3 FL (7.4-10.4); MONOCYTES # (AUTO) 0.7 X10'3 (0-0.9); MONOCYTES % (AUTO) 4.8 % (2-12); NEUTROPHILS # (AUTO) 12.4 X10'3 (1.8-7.7); NEUTROPHILS % (AUTO) 84.6 % (42-75); PLATELET COUNT 298 X10'3 (140-440); RED BLOOD COUNT 3.79 X10'6 (4.20-5.60); RED CELL DISTRIBUTION WIDTH 18.9 % (11.5-14.5); WHITE BLOOD COUNT 14.7 X10'3 (4.5-11.0)
[2018-01-16] MEDS: K, MAG and/or Phos replacement - Verify level? MC SCH (08:00)
[2018-01-16] MEDS: pantoprazole 40 MG vial IV SCH (08:01)
[2018-01-16] MEDS: lactobacillus rhamnosus 10,000 MMU CELLS/CAPSULE PO SCH ×2 (08:02→19:58)
[2018-01-16] MEDS: gabapentin 300mg capsule PO SCH ×2 (08:02→19:58)
[2018-01-16] MEDS: atorvastatin 20mg tablet PO SCH (08:02)
[2018-01-16] MEDS: PARoxetine 20mg tablet PO SCH (08:02)
[2018-01-16] MEDS: aspirin 325mg tablet PO SCH (08:02)
[2018-01-16] MEDS: enoxaparin 30mg/0.3ml syringe SUBCUT SCH ×2 (08:03→19:58)
[2018-01-16] MEDS: propafenone 150mg tablet PO SCH ×3 (08:03→16:21)
[2018-01-16] MEDS: enoxaparin 40mg/0.4ml syringe SQ SCH ×2 (08:03→19:58)
[2018-01-16] MEDS ORDERED: regadenoson 0.4mg/5ml syringe IV PRN (09:20)
[2018-01-16] MEDS ORDERED: metoprolol tartrate 1mg/ml inj IV PRN (09:20)
[2018-01-16] MEDS ORDERED: nitroGLYCERIN 0.4mg SUBLingual tab SL PRN (09:20)
[2018-01-16] MEDS ORDERED: aminophylline 250mg/10ml inj. IV PRN (09:20)
[2018-01-16] MEDS: insulin glargine (Lantus) pen - multi-dose SQ SCH (21:00)
[2018-01-17] VITALS (30 sets, daily range): BP systolic 82–154; BP diastolic 38–75
[2018-01-17] MEDS: propafenone 150mg tablet PO SCH ×3 (00:21→16:07)
[2018-01-17] MEDS: amiodarone/D5 360MG/200ML BAG 200 ML IV SCH ×2 (01:05→08:37)
[2018-01-17] MEDS: ipratropium/albuterol 3ml nebule NEB SCH ×4 (02:18→20:04)
[2018-01-17] MEDS: furosemide 40mg/4ml inj IV SCH ×3 (02:19→20:18)
[2018-01-17 03:12] LABS: BASOPHILS # (AUTO) 0.2 X10'3 (0-0.2); BASOPHILS % (AUTO) 0.8 % (0-1); EOSINOPHILS # (AUTO) 0.5 X10'3 (0-0.9); EOSINOPHILS % (AUTO) 2.9 % (0-6); HEMATOCRIT 30.6 % (35.0-45.0); HEMOGLOBIN 9.7 g/dl (12.0-16.0); LYMPHOCYTES # (AUTO) 1.1 X10'3 (1.1-4.8); LYMPHOCYTES % (AUTO) 6.2 % (21-51); MEAN CORPUSCULAR HEMOGLOBIN 25.9 PG (27.0-31.0); MEAN CORPUSCULAR HGB CONC 31.7 % (33.0-36.5); MEAN CORPUSCULAR VOLUME 81.6 FL (78-98); MONOCYTES # (AUTO) 0.7 X10'3 (0-0.9); MONOCYTES % (AUTO) 3.7 % (2-12); NEUTROPHILS # (AUTO) 15.6 X10'3 (1.8-7.7); NEUTROPHILS % (AUTO) 86.4 % (42-75); PLATELET COUNT 307 X10'3 (140-440); RED BLOOD COUNT 3.74 X10'6 (4.20-5.60); RED CELL DISTRIBUTION WIDTH 18.9 % (11.5-14.5)
[2018-01-17 03:45] LABS: PLATELET ESTIMATE NORMAL
[2018-01-17 03:46] LABS: ANISOCYTOSIS 2+; TARGET CELLS 1+
[2018-01-17 03:47] LABS: HYPOCHROMASIA 1+; POLYCHROMASIA FEW; TEAR DROP CELLS FEW
[2018-01-17 04:05] LABS: ALANINE AMINOTRANSFERASE 17 U/L (12-78); ALBUMIN 1.8 G/DL (3.4-5.0); ALBUMIN/GLOBULIN RATIO 0.4 (1.1-1.5); ALKALINE PHOSPHATASE 73 IU/L (46-116); ANION GAP 2 (8-16); ASPARTATE AMINO TRANSFERASE 19 U/L (10-37); BILIRUBIN,TOTAL 0.3 MG/DL (0.1-1.0); BLOOD UREA NITROGEN 10 MG/DL (7-18); BUN/CREATININE RATIO 12.8 (6.6-38.0); CALCIUM 8.1 MG/DL (8.5-10.1); CHLORIDE 102 MMOL/L (99-107); CREATININE 0.78 MG/DL (0.40-0.90); GLUCOSE 103 MG/DL (70-104); MAGNESIUM 1.9 MG/DL (1.5-2.4); PHOSPHORUS 3.7 MG/DL (2.3-4.5); POTASSIUM 3.4 MMOL/L (3.5-5.1); SODIUM 141 MMOL/L (135-145); TOTAL CARBON DIOXIDE 36.6 MMOL/L (24-32); TOTAL PROTEIN 6.1 G/DL (6.4-8.2); eGFR 73 ML/MIN
[2018-01-17] MEDS: potassium Cl 20 mEq SR tablet PO PRN ×3 (04:46→12:52)
[2018-01-17] MEDS: K, MAG and/or Phos replacement - Verify level? MC SCH (08:00)
[2018-01-17] MEDS: lactobacillus rhamnosus 10,000 MMU CELLS/CAPSULE PO SCH ×2 (08:04→20:19)
[2018-01-17] MEDS: pantoprazole 40 MG vial IV SCH (08:04)
[2018-01-17] MEDS: gabapentin 300mg capsule PO SCH ×2 (08:04→20:19)
[2018-01-17] MEDS: atorvastatin 20mg tablet PO SCH (08:04)
[2018-01-17] MEDS: aspirin 325mg tablet PO SCH (08:04)
[2018-01-17] MEDS: enoxaparin 30mg/0.3ml syringe SUBCUT SCH ×2 (08:05→20:18)
[2018-01-17] MEDS: PARoxetine 20mg tablet PO SCH (08:05)
[2018-01-17] MEDS: enoxaparin 40mg/0.4ml syringe SQ SCH ×2 (08:05→20:18)
[2018-01-17] MEDS ORDERED: regadenoson 0.4mg/5ml syringe IV PRN (08:05)
[2018-01-17] MEDS ORDERED: levoFLOXACIN 500mg tablet PO ONE (09:10)
[2018-01-17] MEDS ORDERED: linezolid 600mg tablet PO ONE (09:10)
[2018-01-17] MEDS ORDERED: fluconazole 150mg tablet PO ONE (09:15)
[2018-01-17] MEDS ORDERED: aminophylline inj. 0 ML IV ONE (09:37)
[2018-01-17] MEDS ORDERED: regadenoson 0.4mg/5ml syringe IV ONE (09:37)
[2018-01-17] MEDS ORDERED: levoFLOXACIN 500mg tablet PO SCH (11:00)
[2018-01-17 11:16] LABS: CLARITY,URINE SLIGHTLY CLOUDY (Clear); COLOR,URINE YELLOW (Yellow); GLUCOSE, URINE NEGATIVE (Neg); KETONES,URINE NEGATIVE (Neg); LEUKOCYTE ESTERASE ,URINE MODERATE (Neg); NITRITES, URINE NEGATIVE (Neg); OCCULT BLOOD,URINE LARGE (Neg); PROTEIN,URINE TRACE mg/dl (Neg); UROBILINOGEN,URINE 0.2 E.U/dL (0.2-1.0)
[2018-01-17 11:17] LABS: UA COLLECTION TYPE FOLEY CATH
[2018-01-17 11:23] LABS: BACTERIA,URINE FEW /HPF (Neg); RBC,URINE TNTC /HPF (0-2)
[2018-01-17 11:24] LABS: SQUAMOUS EPITHELIAL CELL,UR FEW /LPF (FEW)
[2018-01-17] MEDS: lactose-reduced food (Ensure High Protein) 237ml bottle PO SCH ×2 (13:05→18:00)
[2018-01-17] MEDS ORDERED: linezolid 600mg tablet PO SCH (20:00)
[2018-01-17] MEDS: insulin glargine (Lantus) pen - multi-dose SQ SCH (20:19)
[2018-01-17] MEDS ORDERED: methylPREDNISolone sod succ 125mg/2ml vial IV ONE (20:35)
[2018-01-18] VITALS (24 sets, daily range): BP systolic 65–153; BP diastolic 39–73
[2018-01-18] MEDS: propafenone 150mg tablet PO SCH ×4 (00:38→23:44)
[2018-01-18] MEDS: ipratropium/albuterol 3ml nebule NEB SCH ×4 (02:09→20:18)
[2018-01-18 02:46] LABS: BASOPHILS % (AUTO) 0 % (0-1); EOSINOPHILS % (AUTO) 0 % (0-6); HEMATOCRIT 30.3 % (35.0-45.0); HEMOGLOBIN 9.7 g/dl (12.0-16.0); LYMPHOCYTES # (AUTO) 0.5 X10'3 (1.1-4.8); LYMPHOCYTES % (AUTO) 2.7 % (21-51); MEAN CORPUSCULAR HEMOGLOBIN 26.1 PG (27.0-31.0); MEAN CORPUSCULAR HGB CONC 32.1 % (33.0-36.5); MEAN CORPUSCULAR VOLUME 81.4 FL (78-98); MEAN PLATELET VOLUME 8.6 FL (7.4-10.4); MONOCYTES # (AUTO) 0.1 X10'3 (0-0.9); MONOCYTES % (AUTO) 0.4 % (2-12); NEUTROPHILS # (AUTO) 18.7 X10'3 (1.8-7.7); NEUTROPHILS % (AUTO) 96.9 % (42-75); PLATELET COUNT 350 X10'3 (140-440); RED BLOOD COUNT 3.73 X10'6 (4.20-5.60); RED CELL DISTRIBUTION WIDTH 18.7 % (11.5-14.5); WHITE BLOOD COUNT 19.3 X10'3 (4.5-11.0)
[2018-01-18 02:52] LABS: ALANINE AMINOTRANSFERASE 21 U/L (12-78); ALBUMIN 1.9 G/DL (3.4-5.0); ALBUMIN/GLOBULIN RATIO 0.4 (1.1-1.5); ALKALINE PHOSPHATASE 80 IU/L (46-116); ANION GAP 7 (8-16); ASPARTATE AMINO TRANSFERASE 29 U/L (10-37); BILIRUBIN,TOTAL 0.4 MG/DL (0.1-1.0); BLOOD UREA NITROGEN 18 MG/DL (7-18); BUN/CREATININE RATIO 20.5 (6.6-38.0); CHLORIDE 98 MMOL/L (99-107); CREATININE 0.88 MG/DL (0.40-0.90); GLUCOSE 137 MG/DL (70-104); MAGNESIUM 1.9 MG/DL (1.5-2.4); PHOSPHORUS 4.2 MG/DL (2.3-4.5); POTASSIUM 3.9 MMOL/L (3.5-5.1); SODIUM 141 MMOL/L (135-145); TOTAL CARBON DIOXIDE 35.7 MMOL/L (24-32); TOTAL PROTEIN 6.3 G/DL (6.4-8.2); eGFR 64 ML/MIN
[2018-01-18 03:40] LABS: ANISOCYTOSIS 2+; HYPOCHROMASIA 1+; PLATELET ESTIMATE NORMAL; POLYCHROMASIA FEW; TARGET CELLS 1+; TEAR DROP CELLS FEW
[2018-01-18] MEDS: lactose-reduced food (Ensure High Protein) 237ml bottle PO SCH ×3 (08:00→19:16)
[2018-01-18] MEDS: K, MAG and/or Phos replacement - Verify level? MC SCH (08:00)
[2018-01-18] MEDS: aspirin 325mg tablet PO SCH (08:13)
[2018-01-18] MEDS: lactobacillus rhamnosus 10,000 MMU CELLS/CAPSULE PO SCH ×2 (08:13→19:29)
[2018-01-18] MEDS: furosemide 40mg/4ml inj IV SCH ×2 (08:13→19:29)
[2018-01-18] MEDS: atorvastatin 20mg tablet PO SCH (08:14)
[2018-01-18] MEDS: gabapentin 300mg capsule PO SCH ×2 (08:14→19:29)
[2018-01-18] MEDS: enoxaparin 30mg/0.3ml syringe SUBCUT SCH ×2 (08:16→19:30)
[2018-01-18] MEDS: enoxaparin 40mg/0.4ml syringe SQ SCH ×2 (08:16→19:30)
[2018-01-18] MEDS: pantoprazole 40 MG vial IV SCH (08:25)
[2018-01-18] MEDS ORDERED: diphenhydrAMINE 50 mg/ml inj IV ONE (08:40)
[2018-01-18] MEDS: vancomycin/NS 1 GM ADD-VANTAGE 250 ML IV SCH (09:59)
[2018-01-18] MEDS: PARoxetine 20mg tablet PO SCH (10:36)
[2018-01-18] MEDS ORDERED: amiodarone 150mg/dext, iso-os 100 ML IV ONE (13:40)
[2018-01-18] MEDS: piperacillin/tazo 3.375gm/50ml 50 ML IV SCH ×2 (13:53→19:29)
[2018-01-18] MEDS: amiodarone/D5 360MG/200ML BAG 200 ML IV SCH ×2 (14:04→19:42)
[2018-01-18] MEDS ORDERED: vancomycin/NS 1 GM ADD-VANTAGE 250 ML IV SCH (20:00)
[2018-01-18] MEDS: insulin glargine (Lantus) pen - multi-dose SQ SCH (20:51)
[2018-01-18] MEDS ORDERED: albumin (human) 25% 100ml IV 100 ML IV ONE (23:25)
[2018-01-19] VITALS (24 sets, daily range): BP systolic 78–159; BP diastolic 42–70
[2018-01-19] MEDS ORDERED: albumin (human) 25% 100ml IV 100 ML IV ONE (00:30)
[2018-01-19] MEDS: amiodarone/D5 360MG/200ML BAG 200 ML IV SCH ×2 (01:17→06:34)
[2018-01-19] MEDS: piperacillin/tazo 3.375gm/50ml 50 ML IV SCH ×4 (02:08→20:23)
[2018-01-19] MEDS: ipratropium/albuterol 3ml nebule NEB SCH ×4 (02:46→20:04)
[2018-01-19 02:47] LABS: BASOPHILS # (AUTO) 0.1 X10'3 (0-0.2); BASOPHILS % (AUTO) 0.4 % (0-1); EOSINOPHILS # (AUTO) 0.1 X10'3 (0-0.9); EOSINOPHILS % (AUTO) 0.5 % (0-6); HEMOGLOBIN 8.6 g/dl (12.0-16.0); LYMPHOCYTES # (AUTO) 0.9 X10'3 (1.1-4.8); LYMPHOCYTES % (AUTO) 7.2 % (21-51); MEAN CORPUSCULAR HEMOGLOBIN 25.9 PG (27.0-31.0); MEAN CORPUSCULAR HGB CONC 31.9 % (33.0-36.5); MEAN CORPUSCULAR VOLUME 81.1 FL (78-98); MEAN PLATELET VOLUME 8.3 FL (7.4-10.4); MONOCYTES # (AUTO) 0.4 X10'3 (0-0.9); MONOCYTES % (AUTO) 3.1 % (2-12); NEUTROPHILS # (AUTO) 11.6 X10'3 (1.8-7.7); NEUTROPHILS % (AUTO) 88.8 % (42-75); PLATELET COUNT 342 X10'3 (140-440); RED BLOOD COUNT 3.33 X10'6 (4.20-5.60); RED CELL DISTRIBUTION WIDTH 19.3 % (11.5-14.5); WHITE BLOOD COUNT 13.1 X10'3 (4.5-11.0)
[2018-01-19 03:04] LABS: ANION GAP 9 (8-16); BLOOD UREA NITROGEN 21 MG/DL (7-18); BUN/CREATININE RATIO 25.3 (6.6-38.0); CALCIUM 7.8 MG/DL (8.5-10.1); CHLORIDE 100 MMOL/L (99-107); CREATININE 0.83 MG/DL (0.40-0.90); GLUCOSE 103 MG/DL (70-104); PHOSPHORUS 3.2 MG/DL (2.3-4.5); SODIUM 144 MMOL/L (135-145); TOTAL CARBON DIOXIDE 35.4 MMOL/L (24-32); eGFR 68 ML/MIN
[2018-01-19 03:05] LABS: ALANINE AMINOTRANSFERASE 18 U/L (12-78); ALBUMIN 2.9 G/DL (3.4-5.0); ALBUMIN/GLOBULIN RATIO 0.9 (1.1-1.5); ALKALINE PHOSPHATASE 63 IU/L (46-116); ASPARTATE AMINO TRANSFERASE 16 U/L (10-37); BILIRUBIN,TOTAL 0.3 MG/DL (0.1-1.0); MAGNESIUM 1.8 MG/DL (1.5-2.4); PREALBUMIN 12.2 MG/DL (19-36); TOTAL PROTEIN 6.2 G/DL (6.4-8.2)
[2018-01-19 03:18] LABS: POTASSIUM 2.4 MMOL/L (3.5-5.1)
[2018-01-19] MEDS: potassium Cl 40MEQ/250ML bag 250 ML IV PRN ×2 (04:00→06:26)
[2018-01-19] MEDS: furosemide 40mg/4ml inj IV SCH ×2 (07:34→20:23)
[2018-01-19] MEDS: pantoprazole 40 MG vial IV SCH (07:34)
[2018-01-19] MEDS: enoxaparin 30mg/0.3ml syringe SUBCUT SCH ×2 (07:36→20:24)
[2018-01-19] MEDS: enoxaparin 40mg/0.4ml syringe SQ SCH ×2 (07:36→20:24)
[2018-01-19] MEDS: lactobacillus rhamnosus 10,000 MMU CELLS/CAPSULE PO SCH ×2 (07:37→20:24)
[2018-01-19] MEDS: PARoxetine 20mg tablet PO SCH (07:37)
[2018-01-19] MEDS: gabapentin 300mg capsule PO SCH ×2 (07:37→20:23)
[2018-01-19] MEDS: atorvastatin 20mg tablet PO SCH (07:37)
[2018-01-19] MEDS: lactose-reduced food (Ensure High Protein) 237ml bottle PO SCH ×3 (07:38→15:32)
[2018-01-19] MEDS: K, MAG and/or Phos replacement - Verify level? MC SCH (07:39)
[2018-01-19] MEDS: aspirin 325mg tablet PO SCH (07:41)
[2018-01-19] MEDS ORDERED: amiodarone 200mg tablet PO SCH (08:00)
[2018-01-19] MEDS: vancomycin/NS 1 GM ADD-VANTAGE 250 ML IV SCH (10:12)
[2018-01-19] MEDS: diphenhydrAMINE 50 mg/ml inj IV PRN (12:14)
[2018-01-19] MEDS: amiodarone 200mg tablet PO SCH ×2 (15:16→20:24)
[2018-01-19] MEDS: insulin glargine (Lantus) pen - multi-dose SQ SCH (20:25)
[2018-01-20] VITALS (16 sets, daily range): BP systolic 94–131; BP diastolic 46–85
[2018-01-20] MEDS: piperacillin/tazo 3.375gm/50ml 50 ML IV SCH ×2 (01:59→08:07)
[2018-01-20] MEDS: ipratropium/albuterol 3ml nebule NEB SCH ×4 (02:42→21:03)
[2018-01-20 03:48] LABS: BASOPHILS % (AUTO) 0.1 % (0-1); EOSINOPHILS # (AUTO) 0.3 X10'3 (0-0.9); EOSINOPHILS % (AUTO) 2.2 % (0-6); HEMATOCRIT 29.1 % (35.0-45.0); HEMOGLOBIN 9.5 g/dl (12.0-16.0); LYMPHOCYTES # (AUTO) 1.1 X10'3 (1.1-4.8); LYMPHOCYTES % (AUTO) 8.1 % (21-51); MEAN CORPUSCULAR HEMOGLOBIN 26.3 PG (27.0-31.0); MEAN CORPUSCULAR HGB CONC 32.5 % (33.0-36.5); MEAN CORPUSCULAR VOLUME 80.8 FL (78-98); MEAN PLATELET VOLUME 8.2 FL (7.4-10.4); MONOCYTES # (AUTO) 0.6 X10'3 (0-0.9); MONOCYTES % (AUTO) 3.9 % (2-12); NEUTROPHILS # (AUTO) 12.1 X10'3 (1.8-7.7); NEUTROPHILS % (AUTO) 85.7 % (42-75); PLATELET COUNT 407 X10'3 (140-440); RED CELL DISTRIBUTION WIDTH 19.4 % (11.5-14.5); WHITE BLOOD COUNT 14.2 X10'3 (4.5-11.0)
[2018-01-20 04:05] LABS: ALANINE AMINOTRANSFERASE 17 U/L (12-78); ALBUMIN 2.5 G/DL (3.4-5.0); ALBUMIN/GLOBULIN RATIO 0.7 (1.1-1.5); ALKALINE PHOSPHATASE 69 IU/L (46-116); ANION GAP 5 (8-16); ASPARTATE AMINO TRANSFERASE 14 U/L (10-37); BILIRUBIN,TOTAL 0.4 MG/DL (0.1-1.0); BLOOD UREA NITROGEN 14 MG/DL (7-18); BUN/CREATININE RATIO 16.5 (6.6-38.0); CHLORIDE 102 MMOL/L (99-107); CREATININE 0.85 MG/DL (0.40-0.90); GLUCOSE 105 MG/DL (70-104); MAGNESIUM 1.8 MG/DL (1.5-2.4); PHOSPHORUS 3.1 MG/DL (2.3-4.5); SODIUM 143 MMOL/L (135-145); TOTAL CARBON DIOXIDE 36.5 MMOL/L (24-32); eGFR 66 ML/MIN
[2018-01-20] MEDS: lactobacillus rhamnosus 10,000 MMU CELLS/CAPSULE PO SCH ×2 (07:49→20:49)
[2018-01-20] MEDS: amiodarone 200mg tablet PO SCH ×3 (07:49→20:50)
[2018-01-20] MEDS: aspirin 325mg tablet PO SCH (07:49)
[2018-01-20] MEDS: PARoxetine 20mg tablet PO SCH (07:49)
[2018-01-20] MEDS: atorvastatin 20mg tablet PO SCH (07:50)
[2018-01-20] MEDS: gabapentin 300mg capsule PO SCH ×2 (07:50→20:50)
[2018-01-20] MEDS: enoxaparin 40mg/0.4ml syringe SQ SCH ×2 (07:51→20:49)
[2018-01-20] MEDS: enoxaparin 30mg/0.3ml syringe SUBCUT SCH ×2 (07:52→20:49)
[2018-01-20] MEDS: K, MAG and/or Phos replacement - Verify level? MC SCH (08:00)
[2018-01-20] MEDS: lactose-reduced food (Ensure High Protein) 237ml bottle PO SCH ×3 (08:00→18:00)
[2018-01-20] MEDS: furosemide 40mg/4ml inj IV SCH ×2 (08:06→20:48)
[2018-01-20] MEDS: diphenhydrAMINE 50 mg/ml inj IV PRN (08:06)
[2018-01-20] MEDS: pantoprazole 40 MG vial IV SCH (08:07)
[2018-01-20] MEDS: potassium Cl 20 mEq SR tablet PO PRN ×2 (09:43→13:35)
[2018-01-20] MEDS: vancomycin/NS 1 GM ADD-VANTAGE 250 ML IV SCH (12:13)
[2018-01-20] MEDS ORDERED: acetaminophen 325mg tablet PO PRN (13:15)
[2018-01-20] MEDS: sulfamethoxazole/trimethoprim DS (800/160mg) tablet PO SCH (13:39)
[2018-01-20] MEDS: insulin glargine (Lantus) pen - multi-dose SQ SCH (21:00)
[2018-01-21] MEDS: ipratropium/albuterol 3ml nebule NEB SCH ×4 (02:20→20:04)
[2018-01-21 03:00] VITALS: BP 124/45
[2018-01-21 05:15] LABS: BASOPHILS # (AUTO) 0.1 X10'3 (0-0.2); BASOPHILS % (AUTO) 0.3 % (0-1); EOSINOPHILS # (AUTO) 0.3 X10'3 (0-0.9); EOSINOPHILS % (AUTO) 2.2 % (0-6); HEMATOCRIT 32.1 % (35.0-45.0); HEMOGLOBIN 10.1 g/dl (12.0-16.0); LYMPHOCYTES # (AUTO) 1.8 X10'3 (1.1-4.8); LYMPHOCYTES % (AUTO) 11.5 % (21-51); MEAN CORPUSCULAR HGB CONC 31.5 % (33.0-36.5); MEAN CORPUSCULAR VOLUME 82.4 FL (78-98); MEAN PLATELET VOLUME 8.2 FL (7.4-10.4); MONOCYTES # (AUTO) 0.7 X10'3 (0-0.9); MONOCYTES % (AUTO) 4.4 % (2-12); NEUTROPHILS % (AUTO) 81.6 % (42-75); PLATELET COUNT 441 X10'3 (140-440); RED BLOOD COUNT 3.89 X10'6 (4.20-5.60); RED CELL DISTRIBUTION WIDTH 20.3 % (11.5-14.5); WHITE BLOOD COUNT 15.9 X10'3 (4.5-11.0)
[2018-01-21 05:53] LABS: ALANINE AMINOTRANSFERASE 16 U/L (12-78); ALBUMIN 2.4 G/DL (3.4-5.0); ALBUMIN/GLOBULIN RATIO 0.6 (1.1-1.5); ALKALINE PHOSPHATASE 72 IU/L (46-116); ANION GAP 5 (8-16); ASPARTATE AMINO TRANSFERASE 15 U/L (10-37); BILIRUBIN,TOTAL 0.3 MG/DL (0.1-1.0); BLOOD UREA NITROGEN 11 MG/DL (7-18); BUN/CREATININE RATIO 11.6 (6.6-38.0); CALCIUM 8.5 MG/DL (8.5-10.1); CHLORIDE 102 MMOL/L (99-107); CREATININE 0.95 MG/DL (0.40-0.90); GLUCOSE 101 MG/DL (70-104); MAGNESIUM 1.9 MG/DL (1.5-2.4); PHOSPHORUS 3.3 MG/DL (2.3-4.5); POTASSIUM 3.8 MMOL/L (3.5-5.1); SODIUM 141 MMOL/L (135-145); TOTAL CARBON DIOXIDE 33.6 MMOL/L (24-32); TOTAL PROTEIN 6.1 G/DL (6.4-8.2); eGFR 58 ML/MIN
[2018-01-21 07:00] VITALS: BP 123/50
[2018-01-21] MEDS: lactose-reduced food (Ensure High Protein) 237ml bottle PO SCH ×3 (08:00→18:00)
[2018-01-21] MEDS: K, MAG and/or Phos replacement - Verify level? MC SCH (08:00)
[2018-01-21] MEDS: gabapentin 300mg capsule PO SCH ×2 (08:10→19:58)
[2018-01-21] MEDS: aspirin 325mg tablet PO SCH (08:10)
[2018-01-21] MEDS: atorvastatin 20mg tablet PO SCH (08:10)
[2018-01-21] MEDS: amiodarone 200mg tablet PO SCH ×3 (08:10→21:00)
[2018-01-21] MEDS: lactobacillus rhamnosus 10,000 MMU CELLS/CAPSULE PO SCH ×2 (08:10→19:58)
[2018-01-21] MEDS: pantoprazole 40 MG vial IV SCH (08:11)
[2018-01-21] MEDS: furosemide 40mg/4ml inj IV SCH ×2 (08:11→19:58)
[2018-01-21] MEDS: enoxaparin 30mg/0.3ml syringe SUBCUT SCH ×2 (08:11→19:59)
[2018-01-21] MEDS: enoxaparin 40mg/0.4ml syringe SQ SCH ×2 (08:11→20:00)
[2018-01-21] MEDS: sulfamethoxazole/trimethoprim DS (800/160mg) tablet PO SCH (08:12)
[2018-01-21] MEDS: PARoxetine 20mg tablet PO SCH (08:12)
[2018-01-21 08:31] LABS: BILIRUBIN,DIRECT 0.1 MG/DL (0-0.3)
[2018-01-21] MEDS ORDERED: AMIO200T40 PO (08:44)
[2018-01-21] MEDS ORDERED: BACDS PO (08:44)
[2018-01-21] MEDS ORDERED: DIPH-423 PO (08:45)
[2018-01-21] MEDS ORDERED: VANCOMYCIN LEVEL IV ONE (09:30)
[2018-01-21 11:00] VITALS: BP 118/42
[2018-01-21 15:00] VITALS: BP 129/60
[2018-01-21 19:00] VITALS: BP 113/58
[2018-01-21] MEDS: loperamide 2mg capsule PO PRN (19:58)
[2018-01-21] MEDS: diphenhydrAMINE 50 mg/ml inj IV PRN (19:59)
[2018-01-21] MEDS: insulin glargine (Lantus) pen - multi-dose SQ SCH (21:00)
[2018-01-21] MEDS ORDERED: amiodarone 200mg tablet PO SCH (21:00)
[2018-01-21 23:00] VITALS: BP 122/59
[2018-01-22 03:00] VITALS: BP 121/50
[2018-01-22] MEDS: ipratropium/albuterol 3ml nebule NEB SCH ×2 (03:00→08:18)
[2018-01-22 06:00] VITALS: BP 119/48
[2018-01-22 07:03] LABS: BASOPHILS % (AUTO) 0.1 % (0-1); EOSINOPHILS # (AUTO) 0.4 X10'3 (0-0.9); EOSINOPHILS % (AUTO) 2.6 % (0-6); HEMATOCRIT 33.9 % (35.0-45.0); HEMOGLOBIN 10.8 g/dl (12.0-16.0); LYMPHOCYTES # (AUTO) 1.5 X10'3 (1.1-4.8); LYMPHOCYTES % (AUTO) 10.7 % (21-51); MEAN CORPUSCULAR HEMOGLOBIN 26.3 PG (27.0-31.0); MEAN CORPUSCULAR HGB CONC 31.9 % (33.0-36.5); MEAN CORPUSCULAR VOLUME 82.6 FL (78-98); MEAN PLATELET VOLUME 8.2 FL (7.4-10.4); MONOCYTES # (AUTO) 0.6 X10'3 (0-0.9); MONOCYTES % (AUTO) 4.3 % (2-12); NEUTROPHILS # (AUTO) 11.9 X10'3 (1.8-7.7); NEUTROPHILS % (AUTO) 82.3 % (42-75); PLATELET COUNT 500 X10'3 (140-440); RED BLOOD COUNT 4.11 X10'6 (4.20-5.60); RED CELL DISTRIBUTION WIDTH 21.9 % (11.5-14.5); WHITE BLOOD COUNT 14.4 X10'3 (4.5-11.0)
[2018-01-22 07:28] LABS: ALANINE AMINOTRANSFERASE 20 U/L (12-78); ALBUMIN 2.6 G/DL (3.4-5.0); ALBUMIN/GLOBULIN RATIO 0.7 (1.1-1.5); ALKALINE PHOSPHATASE 84 IU/L (46-116); ANION GAP 7 (8-16); ASPARTATE AMINO TRANSFERASE 20 U/L (10-37); BILIRUBIN,TOTAL 0.4 MG/DL (0.1-1.0); BLOOD UREA NITROGEN 10 MG/DL (7-18); BUN/CREATININE RATIO 11.2 (6.6-38.0); CALCIUM 8.3 MG/DL (8.5-10.1); CHLORIDE 102 MMOL/L (99-107); CREATININE 0.89 MG/DL (0.40-0.90); GLUCOSE 91 MG/DL (70-104); MAGNESIUM 2.2 MG/DL (1.5-2.4); PHOSPHORUS 3.7 MG/DL (2.3-4.5); POTASSIUM 3.6 MMOL/L (3.5-5.1); SODIUM 142 MMOL/L (135-145); TOTAL CARBON DIOXIDE 32.9 MMOL/L (24-32); TOTAL PROTEIN 6.5 G/DL (6.4-8.2); eGFR 63 ML/MIN
[2018-01-22 07:51] LABS: ANISOCYTOSIS 3+; MICROCYTOSIS 1+; PLATELET ESTIMATE INCREASED; POLYCHROMASIA 1+
[2018-01-22 07:52] LABS: TARGET CELLS FEW
[2018-01-22] MEDS: furosemide 40mg/4ml inj IV SCH (07:55)
[2018-01-22] MEDS: pantoprazole 40 MG vial IV SCH (07:56)
[2018-01-22] MEDS: amiodarone 200mg tablet PO SCH (07:59)
[2018-01-22] MEDS: lactose-reduced food (Ensure High Protein) 237ml bottle PO SCH (08:00)
[2018-01-22] MEDS: lactobacillus rhamnosus 10,000 MMU CELLS/CAPSULE PO SCH (08:00)
[2018-01-22] MEDS: atorvastatin 20mg tablet PO SCH (08:01)
[2018-01-22] MEDS: gabapentin 300mg capsule PO SCH (08:01)
[2018-01-22] MEDS: PARoxetine 20mg tablet PO SCH (08:01)
[2018-01-22] MEDS: enoxaparin 40mg/0.4ml syringe SQ SCH (08:02)
[2018-01-22] MEDS: sulfamethoxazole/trimethoprim DS (800/160mg) tablet PO SCH (08:02)
[2018-01-22] MEDS: aspirin 325mg tablet PO SCH (08:03)
[2018-01-22] MEDS: enoxaparin 30mg/0.3ml syringe SUBCUT SCH (08:04)
[2018-01-22] MEDS ORDERED: AMIO200T40 PO (08:18)
[2018-01-22] MEDS: loperamide 2mg capsule PO PRN (10:03)
[2018-01-22 11:00] VITALS: BP 131/57
[2018-01-22] MEDS ORDERED: amiodarone 200mg tablet PO SCH (14:00)
== END 2018-01-22 12:45 | disposition home or self-care (01) | DRG 207 ==
LOC: ER 05:06 → ED HOLD 06:10 → CICU 2S 08:08 → PCU 3S 01-20 16:45
PROVIDERS: ATTEND Internal Medicine Critical Care Medicine
PROC: 5A1955Z Respiratory Ventilation, Greater than 96 Consecutive Hours (ICD-10-PCS; principal; 2018-01-04)
PROC: 0BH17EZ Insertion of Endotracheal Airway into Trachea, Via Natural or Artificial Opening (ICD-10-PCS; 2018-01-04)
PROC: 5A12012 Performance of Cardiac Output, Single, Manual (ICD-10-PCS; 2018-01-04)
PROC: 5A2204Z Restoration of Cardiac Rhythm, Single (ICD-10-PCS; 2018-01-04)
PROC: 02HV33Z Insertion of Infusion Device into Superior Vena Cava, Percutaneous Approach (ICD-10-PCS; 2018-01-04)
PROC: B548ZZA Ultrasonography of Superior Vena Cava, Guidance (ICD-10-PCS; 2018-01-04)
PROC: 04HY32Z Insertion of Monitoring Device into Lower Artery, Percutaneous Approach (ICD-10-PCS; 2018-01-05)
PROC: 0W9930Z Drainage of Right Pleural Cavity with Drainage Device, Percutaneous Approach (ICD-10-PCS; 2018-01-11)
PROC: 02HV33Z Insertion of Infusion Device into Superior Vena Cava, Percutaneous Approach (ICD-10-PCS; 2018-01-13)
PROC: 4A02X4A Measurement of Cardiac Electrical Activity, Guidance, External Approach (ICD-10-PCS; 2018-01-13)
PROC: 3E02340 Introduction of Influenza Vaccine into Muscle, Percutaneous Approach (ICD-10-PCS; 2018-01-14)
PROC: 3E033HZ Introduction of Radioactive Substance into Peripheral Vein, Percutaneous Approach (ICD-10-PCS; 2018-01-17)
PROC: 4A02XM4 Measurement of Cardiac Total Activity, External Approach (ICD-10-PCS; 2018-01-17)
DX: J96.01 Acute respiratory failure with hypoxia (principal); J69.0 Pneumonitis due to inhalation of food and vomit; I49.01 Ventricular fibrillation; R57.0 Cardiogenic shock; I46.9 Cardiac arrest, cause unspecified; J90 Pleural effusion, not elsewhere classified; I47.2 Ventricular tachycardia; I24.9 Acute ischemic heart disease, unspecified; E87.0 Hyperosmolality and hypernatremia; G93.1 Anoxic brain damage, not elsewhere classified; E87.3 Alkalosis; J96.02 Acute respiratory failure with hypercapnia; E87.6 Hypokalemia; E83.42 Hypomagnesemia; B37.3 Candidiasis of vulva and vagina; F17.200 Nicotine dependence, unspecified, uncomplicated; I10 Essential (primary) hypertension; I48.91 Unspecified atrial fibrillation; J44.9 Chronic obstructive pulmonary disease, unspecified; R21 Rash and other nonspecific skin eruption; T36.0X5A Adverse effect of penicillins, initial encounter; G89.29 Other chronic pain; I25.2 Old myocardial infarction; Z99.81 Dependence on supplemental oxygen; Z79.899 Other long term (current) drug therapy; Z88.1 Allergy status to other antibiotic agents; Z23 Encounter for immunization; Y92.239 Unspecified place in hospital as the place of occurrence of the external cause
CPT/HCPCS: 32557; 36415; 36556; 36569; 36600; 71045; 76937; 78452; 80048; 80053; 80202; 81001; 82248; 82803; 82810; 82945; 82948; 83605; 83615; 83735; 83986; 84100; 84132; 84134; 84157; 84439; 84443; 84484; 85018; 85025; 85610; 85730; 87040; 87070; 87075; 87077; 87088; 87186; 89051; 92616; 93005; 93017; 93306; 94002; 94003; 94640; 94668; 94760; 96374; 97110; 97116; 97162; 97530; 99285; A9500; C9113; G0378; J0280; J0282; J0610; J1200; J1250; J1650; J1815; J1940; J2001; J2060; J2250; J2405; J2543; J2930; J3370; J3480; J3490; J7030; P9047